=== PATIENT | male | born 1955 | race Caucasian/White ===

== ENCOUNTER 2017-01-25 10:33 | Emergency (ER) | payer MEDICAID ==
[~2017-01-25] VITALS: Ht 188 cm; Wt 130.0 kg
[~2017-01-25 10:33] MED LIST: 1-ME1LIQ PO; ASPI81TA82 PO; ATOR40TA49 PO; CLOP75 PO; METO50TA PO; ONDA8; PERC5TAB12 PO
[2017-01-25 10:34] VITALS: BP 189/89; PULSE 100; RESP 14; TEMP 98.1; O2SAT 97
[2017-01-25] MEDS ORDERED: ASPI81CH CHEW (11:06)
[2017-01-25] MEDS ORDERED: METOPROLOL TARTRATE 25 MG TAB PO ONE (11:15)
[2017-01-25] MEDS ORDERED: METO50TA PO (11:39)
[2017-01-25] MEDS ORDERED: PLAV75TA29 PO (11:39)
--- NOTE | 2017-01-25 11:40 | PD ---
HPI Chief Complaint: Hypertension Time Seen by Provider: 11:01 Travel History International Travel<30 days: No Contact w/Intl Traveler<30days: No Traveled to known affect area: No History of Present Illness HPI This 61-year-old man who presents to the emergency department referred from his primary care doctor for elevated blood pressure. He is a history of mantle cell lymphoma had been treated by Dr. Shoemaker prior to his snf. He is following with a primary care doctor to get referred for further treatment. Blood pressure was elevated there and so was referred to the emergency department. History Past Medical History Narrative Medical Mental cell lymphoma Hypertension Influenza Vaccination: No Social History Alcohol Use: No Tobacco Use: Yes (11/14 ppd) Allergies-Medications (Allergen,Severity, Reaction): Coded Allergies: No Known Allergies (Unverified , 01/25/17) Reported Meds & Prescriptions Reported Meds & Active Scripts Active Reported Aspirin 81 Mg Chew 81 Mg CHEW DAILY Review of Systems Except as stated in HPI: all other systems reviewed are Neg Physical Exam Narrative GENERAL: Well-appearing 7-year-old man, no acute distress. SKIN: Warm and dry. HEAD: Atraumatic. Normocephalic. NECK: Tender adenopathy in the right neck. CARDIOVASCULAR: Regular rate and rhythm. No murmur appreciated. RESPIRATORY: No accessory muscle use. Clear to auscultation. Breath sounds equal bilaterally. GASTROINTESTINAL: Abdomen soft, non-tender, nondistended. Hepatic and splenic margins not palpable. MUSCULOSKELETAL: No obvious deformities. No clubbing. No cyanosis. No edema. NEUROLOGICAL: Awake and alert. No obvious cranial nerve deficits. Motor grossly within normal limits. Normal speech. PSYCHIATRIC: Appropriate mood and affect; insight and judgment normal. Data Data Last Documented VS Vital Signs Date Time Temp Pulse Resp B/P Pulse Ox O2 Delivery O2 Flow Rate FiO2 01/25/17 10:34 98.1 100 14 189/89 97 Room Air Orders Metoprolol Tartrate (Lopressor) (01/25/17 11:15) MDM Medical Decision Making Medical Screen Exam Complete: Yes Emergency Medical Condition: Yes Differential Diagnosis Hypertension, lymphoma, heart disease, kidney disease, other Narrative Course Medical decision making 7 year-old man with known hypertension, non-medications for couple years, with elevated blood pressures primary care doctor's office. We'll need follow-up. We'll restart his blood pressure medications. Follow-up for his lymphoma. He' s been having some headache. He requests headache medicine. He is on opiates in the past but doesn't want to restart these. We'll give a migraine cocktail. Diagnosis Primary Impression: HTN (hypertension) Additional Instructions: Medications as prescribed. Follow-up with her primary care doctor the first available appointment. Return to the emergency department for new or worsening symptoms. Med/Other Pt SpecificInfo: Prescription(s) given Scripts Clopidogrel (Plavix)75 Mg Tab75 Mg PO DAILY #30 TAB Ref 2 Prov:Ramesh Gastelum MD 01/25/17 Metoprolol Tartrate 50 Mg Tab50 Mg PO BID #60 TAB Ref 2 Prov:Ramesh Gastelum MD 01/25/17 Disposition: 01 DISCHARGE HOME Condition: Stable Ramesh Gastelum MD Jan 25, 2017 11:39
[2017-01-31] MEDS ORDERED: VENTAER INH (13:43)
[2017-01-31] MEDS ORDERED: AMLO5TAB2 PO (13:43)
[2017-01-31] MEDS ORDERED: ATOR20TA15 PO (13:43)
[2017-01-31] MEDS ORDERED: PLAV75TA29 PO (13:43)
[2017-02-07] MEDS ORDERED: AMLO10TA2 PO (14:11)
[2017-02-20] MEDS ORDERED: ASPI1TAB69 PO (15:22)
[2017-02-20] MEDS ORDERED: METO100T PO (16:14)
[2017-02-20] MEDS ORDERED: METF500T PO (16:22)
[2017-03-03] MEDS ORDERED: METO50TA PO (16:24)
[2017-03-10] MEDS ORDERED: CANA100T PO (15:45)
[2017-03-10] MEDS ORDERED: AMLO10TA2 PO (15:48)
[2017-03-29] MEDS ORDERED: METO50TA PO (17:46)
[2017-04-24] MEDS ORDERED: ASPI81CH CHEW (14:46)
[2017-04-24] MEDS ORDERED: METO100T9 PO (15:09)
[2017-04-24] MEDS ORDERED: ALBU6.7H INH (15:09)
[2017-04-24] MEDS ORDERED: CANA300T PO (15:09)
[2017-04-24] MEDS ORDERED: CANA100T PO (15:11)
== END 2017-01-25 11:53 | disposition home or self-care (01) ==
LOC: NEPB 10:33
DX: I10 Essential (primary) hypertension (principal); F17.210 Nicotine dependence, cigarettes, uncomplicated
CPT/HCPCS: 99283

== ENCOUNTER 2017-07-03 07:57 | Day surgery (SDC) | payer MEDICAID, OTHER ==
[~2017-07-03] VITALS: Ht 190.5 cm; Wt 120.9 kg
[~2017-07-03 07:57] MED LIST changes: -1-ME1LIQ PO; +ALBU6.7H INH; +AMLO10TA2 PO; +ASPI81CH CHEW; -ASPI81TA82 PO; -ATOR40TA49 PO; +CANA100T PO; -CLOP75 PO; +METO100T9 PO; -METO50TA PO; -ONDA8; -PERC5TAB12 PO; +PLAV75TA29 PO
[2017-07-03 08:33] VITALS: BP 163/102; PULSE 84; RESP 20; TEMP 97.9; O2SAT 97
[2017-07-03] MEDS ORDERED: SODIUM CHLOR 0.9% 1000 ML IV SCH (09:00)
[2017-07-03 09:10] LABS: AUTOMATED NEUTROPHIL # 5.5 TH/MM3 (1.8-7.7); BASOPHIL # 0.1 TH/MM3 (0-0.2); BASOPHIL % 0.7 % (0.0-2.0); EOSINOPHIL # 0.3 TH/MM3 (0-0.4); EOSINOPHIL % 3.3 % (0.0-4.0); HEMATOCRIT 39.3 % (39.0-51.0); LYMPH % 21.7 % (9.0-44.0); LYMPHOCYTE # 1.7 TH/MM3 (1.0-4.8); MEAN CELL VOLUME 90.5 FL (80.0-100.0); MEAN CORPUSCULAR HGB CONC 33.1 % (32.0-36.0); MONO % 5.6 % (0.0-8.0); NEUT % 68.7 % (16.0-70.0); PLATELET COUNT 95 TH/MM3 (150-450); RED BLOOD COUNT 4.34 MIL/MM3 (4.50-5.90); RED CELL DISTRIBUTION WIDTH 14.3 % (11.6-17.2)
[2017-07-03 09:15] LABS: HEMO FLAGS AUTO DIFF
[2017-07-03 09:22] LABS: APTT (PATIENT) 31.9 SEC (24.3-30.1); INTERNATIONAL NORMALIZED RATIO 0.9 RATIO; PROTHROMBIN TIME - PATIENT 10.1 SEC (9.8-11.6)
[2017-07-03] MEDS ORDERED: LIDOCAINE HCL 1% 20 ML VIAL ONE (09:35)
[2017-07-03] MEDS ORDERED: MIDAZOLAM HCL 2 MG/2 ML VIAL ONE (09:47)
[2017-07-03] MEDS ORDERED: fentaNYL CITRATE 250 MCG/5 ML AMP ONE (09:47)
[2017-07-03 09:53] LABS: SCAN/DIFF AUTO DIFF CONFIRMED
--- NOTE | 2017-07-03 10:35 | PD.RAD ---
Post CT Procedure Prog Note Pre Procedure Diagnosis: (1) Mantle cell lymphoma Post Procedure Diagnosis: (1) Mantle cell lymphoma Procedure Date: Jul 03, 2017 Supervising Radiologist: Lucas Nunez Estimated blood loss: <5 ml Anesthesia: Conscious Sedation Plan of Activity Patient to Unit: ROPU Patient Condition: Good Additional Comments: lefy iliac bone See PACS Report for procedural detail/treatment Lucas Nunez MD Jul 03, 2017 10:35
[2017-07-03 10:45] VITALS: BP 141/80; PULSE 78; RESP 18; TEMP 97.6; O2SAT 94
[2017-07-03 11:00] VITALS: BP 129/80; PULSE 73; RESP 16; O2SAT 95
[2017-07-03] MEDS ORDERED: SODIUM CHLORIDE 0.9% FLUSH 10 ML FLUSH IV FLUSH PRN (11:00)
[2017-07-03 11:18] LABS: BONE MARROW PROCESSING COMPLETE; IRON STAIN DONE; JENNER GIEMSA STAIN DONE
[2017-07-03 11:30] VITALS: BP 119/77; PULSE 73; RESP 16; O2SAT 94
[2017-07-03 12:00] VITALS: BP 126/77; PULSE 68; RESP 14; O2SAT 94
--- NOTE | 2017-07-03 12:14 | RADRPT ---
EXAM DATE/TIME: 07/03/2017 10:07 [facility] COMPARISON: No previous studies available for comparison. INDICATIONS : Lymphoma. SEDATION TIME: 30 minutes BIOPSY SITE: Left iliac wing MEDICATION(S): 1.) 3 mg midazolam (Versed) IV 2.) 150 mcg fentanyl (Sublimaze) IV DEVICE(S): 1.) 11 gauge Bone marrow biopsy needle MEDICAL HISTORY : Lymphoma. Stroke. Hypertension. SURGICAL HISTORY : None. ENCOUNTER: Initial ACUITY: 1 day PAIN SCORE: 0/10 LOCATION: Bilateral pelvis A total of one core specimen(s) were obtained and sent to the laboratory for pathologic evaluation. PROCEDURE: 1. CT guided bone marrow biopsy. 2. Conscious sedation with continuous EKG and oximetry monitoring. 3. EKG and oximetry remained stable throughout the procedure. Prior to the procedure informed consent was obtained. Any appropriate prior imaging studies were rev iewed. Using automated exposure control and adjustment of the mA and/or kV according to patient size , radiation dose was kept as low as reasonably achievable to obtain optimal diagnostic quality images . DICOM format image data is available electronically for review and comparison. The site was prepped in a sterile fashion. Full sterile technique was used, including cap, mask, filiberto rile gloves and gown and a large sterile sheet. Hand hygiene and 2% chlorhexidine and/or betadine/al cohol prep was utilized per protocol for cutaneous antisepsis. The skin and subcutaneous tissues wer e infiltrated with local anesthetic solution. With CT guidance the previously identified target was localized. Biopsy was performed using the presc ribed needle as above. Following biopsy marrow aspiration was performed with repeat puncture. Adequa te hemostasis was obtained with compression at the puncture site. Follow-up CT scan reveals no hemorrhage. Conscious sedation was performed with the prescribed dosages and duration as above in the presence of an independent trained radiology nurse to assist in the monitoring of the patient. EKG and oximetry remained stable throughout the procedure. The patient tolerated the procedure well and there were no complications. The patient was sent to Radiology Outpatient Unit in stable condition. CONCLUSION: 1. Uncomplicated CT guided bone marrow aspirate. 2. Uncomplicated CT guided bone marrow biopsy. Lucas Nunez MD on July 03, 2017 at 12:13 Board Certified Radiologist. This report was verified electronically.
[2017-07-03 12:30] VITALS: BP 136/82; PULSE 67; RESP 16; O2SAT 97
[2017-07-26] MEDS ORDERED: METO100T9 PO (09:23)
[2017-07-26] MEDS ORDERED: ALBU6.7H INH (10:21)
[2017-07-26] MEDS ORDERED: AMLO10TA2 PO (15:20)
[2017-07-26] MEDS ORDERED: PLAV75TA29 PO (15:20)
== END 2017-07-03 12:45 | disposition home or self-care (01) ==
LOC: HRAD 07:57 → HRIP 07:58 → HRAD 12:45
PROVIDERS: ATTEND Internal Medicine
DX: C83.10 Mantle cell lymphoma, unspecified site (principal); I10 Essential (primary) hypertension; Z86.73 Personal history of transient ischemic attack (TIA), and cerebral infarction without residual deficits
CPT/HCPCS: 38221; 77012; 85025; 85097; 85610; 85730; 88305; 88311; 88313; 88341; 88342; 99152; 99153; C1830; G0364; J2250; J3010

== ENCOUNTER 2017-09-04 07:39 | Day surgery (SDC) | payer MEDICAID ==
[~2017-09-04 07:39] MED LIST changes: -ASPI81CH CHEW; -CANA100T PO
[2017-09-04 08:36] VITALS: BP 171/96; PULSE 87; RESP 16; TEMP 97.9; O2SAT 98
[2017-09-04] MEDS ORDERED: LIDOCAINE HCL 1% 20 ML VIAL ONE (09:18)
--- NOTE | 2017-09-04 09:31 | RADRPT ---
EXAM DATE/TIME: 09/04/2017 08:15 [facility] COMPARISON: No previous studies available for comparison. [facility]. INDICATIONS : Right neck enlarged lymph node. MEDICAL HISTORY : Hypercholesterolemia. Myocardial infarction. Deep venous thrombosis. CVA. AAA. CAD. Hypertenison. Man tel cell lymphoma cancer. COPD. Asthma. MRSA. Tobacco use. Anticoagulant therapy, Plavix. SURGICAL HISTORY : Abdominal aortic aneurysm repair. Coronary artery stent. Cardiac cath. Right neck lymph node biopsy. Bone marrow biopsy. Chemotherapy. Radiation therapy. ENCOUNTER: Initial ACUITY: 2 months PAIN SCORE: 3/10 LOCATION: Right neck ORGAN: Right lymph node SPECIMENS: Four core specimen(s) submitted for pathologic evaluation. DEVICE: 18 gauge Temno needle Post procedure scanning reveals no hematoma or other complication. The possibility does exist that the tissue obtained will be non-diagnostic. If the sample is non-gregoria gnostic a repeat biopsy or surgical biopsy may need to be performed. TECHNIQUE: 1. Ultrasound guidance for needle biopsy. 2. Needle biopsy. The risks, benefits and alternatives to the procedure were explained and verbal and written consent w as obtained. The site was prepped in sterile fashion. Full sterile technique was used, including ca p, mask, sterile gloves and gown and a large sterile sheet. Hand hygiene and 2% chlorhexidine and/or betadine/alcohol prep was utilized per protocol for cutaneous antisepsis. The skin and subcutaneous tissues were infiltrated with local anesthetic solution. Sterile gel and sterile probe cover were u tilized for ultrasound guidance. With the patient on the ultrasound table, images were obtained. This again demonstrates a very large 5.7 cm hyperemic lymph node on the right. A needle was advanced into the identified target and the number of specimens as above obtained and murdock bmitted for pathologic evaluation. In total, 4 biopsies were obtained. One sample was submitted in RP FL solution. The patient tolerated the procedure well and left the ultrasound suite in stable condition. CONCLUSION: Uncomplicated ultrasound guided needle biopsy. Lucas Nunez MD on September 04, 2017 at 9:28 Board Certified Radiologist. This report was verified electronically.
== END 2017-09-04 09:04 | disposition home or self-care (01) ==
LOC: HRAD 07:39 → HRIP 07:40 → HRAD 09:04
PROVIDERS: ATTEND Internal Medicine
DX: R59.0 Localized enlarged lymph nodes (principal); I25.10 Atherosclerotic heart disease of native coronary artery without angina pectoris; J44.9 Chronic obstructive pulmonary disease, unspecified; I25.2 Old myocardial infarction; Z95.5 Presence of coronary angioplasty implant and graft; Z86.73 Personal history of transient ischemic attack (TIA), and cerebral infarction without residual deficits
CPT/HCPCS: 38505; 76942; 88305; 88341; 88342

== ENCOUNTER 2018-06-28 02:51 | Inpatient (IN) ==
[2018-06-28] MEDS ORDERED: Acetaminophen 325 MG Tablet PO ONE (02:57)
[2018-06-28] MEDS ORDERED: Azithromycin Inj 500 MG in Sodium Chlor 0.9% Inj 250 ML IV.SIG STA (02:57)
[2018-06-28] MEDS ORDERED: Sod Chloride 0.9% Inj 1,000 ML IV.SIG SCH ×2 (03:00)
--- NOTE | 2018-06-28 03:28 | XR ---
EXAM DATE: 06/28/2018 3:15 AM EDT AGE/SEX: 62 years / Male INDICATIONS: Short of breath, chest pain. CLINICAL DATA: This is the patient's initial encounter. Patient reports that signs and symptoms have been present for 1 day and indicates a pain score of 5/10. MEDICAL/SURGICAL HISTORY: None. . [facility]. COMPARISON: No prior exams available for comparison. FINDINGS: A single AP view of the chest demonstrates the lungs to be symmetrically aerated without evidence of mass, infiltrate or effusion. The cardiomediastinal contours are unremarkable. Osseous structures a re intact. There is a CT compatible right internal jugular [id number] in place. The tip overlies t he cavoatrial junction. CONCLUSION: No acute cardiopulmonary process. Electronically signed by: Herbert Hogan MD 06/28/2018 3:27 AM EDT
[2018-06-28 03:54] LABS: Hematocrit 30.3 % (39.0-51.0); Hemoglobin 10.4 gm/dL (13.0-17.0); Mean Corpuscular HGB Conc 34.2 % (32.0-36.0); Mean Corpuscular Hemoglobin 29.2 pg (27.0-34.0); Mean Corpuscular Volume 85.3 fL (80.0-100.0); Mean Platelet Volume 9.6 fL (7.0-11.0); Platelet Count 92 th/mm3 (150-450); Red Blood Count 3.55 mil/mm3 (4.50-5.90); Red Cell Distribution Width 16.5 % (11.6-17.2); White Blood Count 4.2 th/mm3 (4.0-11.0)
[2018-06-28 03:55] LABS: Alanine Aminotransferase 40 U/L (12-78); Albumin 2.6 g/dL (3.4-5.0); Anion Gap 8 meq/L (5-15); Aspartate Aminotransferase 32 U/L (15-37); Blood Urea Nitrogen 12 mg/dL (7-18); Calcium 7.5 mg/dL (8.5-10.1); Carbon Dioxide 30.9 meq/L (21.0-32.0); Chloride 94 meq/L (98-107); Glomerular Filtration Rate 61 mL/min (>89); Glucose,Random 136 mg/dL (74-106); Potassium 3.1 meq/L (3.5-5.1); Sodium 133 meq/L (136-145)
[2018-06-28 03:58] LABS: Activated Partial Thrombo Time 26.3 sec (24.3-30.1); INR 1.1 Ratio; Prothrombin Time 10.8 sec (9.8-11.6)
[2018-06-28 03:59] LABS: Alkaline Phosphatase 189 U/L (45-117); Total Protein 6.6 g/dL (6.4-8.2)
--- NOTE | 2018-06-28 04:12 | ED ---
HPI General Chief Complaint: Chest Pain Stated Complaint: Chest pain/Evac Time Seen by Provider: 06/28/18 02:57 Mode of arrival: EMS Limitations: no limitations History of Present Illness HPI narrative: Patient is a 62-year-old male with coronary artery disease HTN, HLD, lymphoma type 2 diabetes presented to ED with acute onset of chest pain since last night. He has been having difficulty breathing and had a fever on arrival of 102 oral. MD complaint: chest pain Complete Quality Measures for STEMI Alert Patients STEMI Alert: No Onset (ago): unknown Duration: constant Onset: during rest Pain location: substernal Severity: severe Quality: tightness Associated symptoms: cough and other Related Data Home Medications Medication Instructions Recorded Confirmed amlodipine 10 mg PO DAILY 06/28/18 06/28/18 atorvastatin 20 mg PO DAILY 06/28/18 06/28/18 clopidogrel 75 mg PO DAILY 06/28/18 06/28/18 glipizide 10 mg PO DAILY 06/28/18 06/28/18 metoprolol tartrate 100 mg PO DAILY 06/28/18 06/28/18 omeprazole 20 mg PO DAILY 06/28/18 06/28/18 ranitidine HCl 150 mg PO DAILY 06/28/18 06/28/18 Allergies Allergy/AdvReac Type Severity Reaction Status Date / Time No Known Allergies Allergy Verified 06/28/18 03:00 Review of Systems ROS: all other systems reviewed are negative Constitutional Reports body ache(s), Reports chills, Reports fever(s) and Reports malaise [facility] Medical History Medical History COPD (chronic obstructive pulmonary disease) (Acute) Diabetes (Acute) GERD (gastroesophageal reflux disease) (Acute) HTN (hypertension) (Acute) Heart attack (Acute) Hx of abdominal aortic aneurysm (Acute) TIA (transient ischemic attack) (Acute) Surgical History Surgical History Hx of heart surgery (Acute) Family History Family History Father Heart disease Social History Social History Substance History: No History of Abuse Second Hand Smoke Exposure: Yes Smoking Status: Current some day smoker Tobacco Type: Cigarettes How Often Do You Have a Drink Containing Alcohol: Never Recent Travel in [place] within the Last 8 Weeks: No Recent Out of Country Travel within the Last 8 Weeks: No Immunization History Tetanus Immunization: Unsure Hx Influenza Vaccine This Season: No Exam Narrative Exam Narrative: GENERAL: Alert and oriented in no distress SKIN: Focused skin assessment warm/dry. HEAD: Atraumatic. Normocephalic. EYES: Pupils equal and round. No scleral icterus. No injection or drainage. ENT: No nasal bleeding or discharge. Mucous membranes pink and moist. NECK: Trachea midline. No JVD. CARDIOVASCULAR: Tachycardia regular rhythm. No murmur appreciated. RESPIRATORY: No accessory muscle use. Clear to auscultation. Breath sounds equal bilaterally. GASTROINTESTINAL: Abdomen soft, non-tender, nondistended. Hepatic and splenic margins not palpable. MUSCULOSKELETAL: No obvious deformities. No clubbing. No cyanosis. No edema. NEUROLOGICAL: Awake and alert. No obvious cranial nerve deficits. Motor grossly within normal limits. Normal speech. PSYCHIATRIC: Appropriate mood and affect; insight and judgment normal. Course Initial Documented Vital Signs Temperature 102.3 F H 06/28/18 03:00 Pulse Rate 136 H 06/28/18 03:00 Respiratory Rate 22 06/28/18 03:00 Blood Pressure 172/91 H 06/28/18 03:00 Pulse Oximetry 98 06/28/18 03:00 Last Documented Vital Signs Temperature 99.4 F 06/29/18 19:00 Pulse Rate 116 H 06/29/18 20:07 Respiratory Rate 22 06/29/18 20:07 Blood Pressure 127/52 L 06/29/18 19:00 Pulse Oximetry 99 06/29/18 20:06 Medical Decision Making [facility] Narrative Medical decision making narrative: Patient met sepsis criteria on arrival with rapid heart rate and fever. Equivocal findings on chest x-ray but due to symptoms and the fact that he schedule COPD with sepsis suspected clinical pneumonia for which she was started on broad-spectrum antibiotics. Chest pain resolved in the ED with interventions. Initial cardiac enzymes and EKG are not suggestive of acute ischemia. Was admitted for further evaluation treatment. Medical Screen Exam Complete: Yes Emergency Medical Condition: Yes Lab Data Lab results reviewed: Yes I reviewed the patient's lab results. Result diagrams: 06/30/18 06:02 06/30/18 06:02 Lab Results 06/28/18 06/28/18 06/28/18 Range/Units 03:05 03:05 03:05 WBC 4.2 (4.0-11.0) th/mm3 RBC 3.55 L (4.50-5.90) mil/mm3 Hgb 10.4 L (13.0-17.0) gm/dL Hct 30.3 L (39.0-51.0) % MCV 85.3 (80.0-100.0) fL MCH 29.2 (27.0-34.0) pg MCHC 34.2 (32.0-36.0) % RDW 16.5 (11.6-17.2) % Plt Count 92 L D (150-450) th/mm3 MPV 9.6 (7.0-11.0) fL Prelim Diff (Auto) Manual diff required Neut % (Auto) (16.0-70.0) % Lymph % (Auto) (9.0-44.0) % [place] % (Auto) (0.0-8.0) % Eos % (Auto) (0.0-4.0) % Baso % (Auto) (0.0-2.0) % Neut # (Auto) (1.8-7.7) th/mm3 Lymph # (Auto) (1.0-4.8) th/mm3 [place] # (Auto) (0.0-0.9) th/mm3 Eos # (Auto) (0.0-0.4) th/mm3 Baso # (Auto) (0.0-0.2) th/mm3 WBC Differential Manual diff final Seg Neuts % (Manual) 74 H (16-70) % Band Neuts % (Manual) 3 (0-6) % Lymphocytes % (Manual) 13 (9-44) % Monocytes % (Manual) 9 H (0-8) % Eosinophils % (Manual) 1 (0-4) % Basophils % (Manual) (0-2) % Metamyelocytes % (Man) (0-1) % Abs Neuts (Manual) 3.2 (1.8-7.7) th/mm3 Differential Comment . Platelet Estimate Low L (Normal) Platelet Morphology Normal (Normal) Ovalocytes 1+ H (None) PT 10.8 (9.8-11.6) sec INR 1.1 Ratio APTT 26.3 (24.3-30.1) sec Puncture Site Patient Temperature O2 Saturation (90-100) % ABG pH (7.380-7.420) ABG pCO2 (38-42) mmHg ABG pO2 (61-120) mmHg ABG HCO3 (22-26) mmol/L ABG O2 Content (12.0-20.0) Vol % ABG Base Excess (-2-2) mmol/L ABG Methemoglobin (0-2) % Rod Test Hemoglobin (12.0-16.0) G/DL Carboxyhemoglobin (0-4) % O2 Delivery Device Liter Flow L/M Inspired O2 % Critical Value Sodium 133 L (136-145) meq/L Potassium 3.1 L (3.5-5.1) meq/L Chloride 94 L (98-107) meq/L Carbon Dioxide 30.9 (21.0-32.0) meq/L Anion Gap 8 (5-15) meq/L BUN 12 (7-18) mg/dL Creatinine 1.21 (0.60-1.30) mg/dL Estimated GFR 61 L (>89) mL/min POC Glucose (68-110) mg/dl Random Glucose 136 H (74-106) mg/dL Lactic Acid (0.4-2.0) mmol/L Calcium 7.5 L (8.5-10.1) mg/dL Prot Corrected Calcium (8.5-10.1) mg/dL Phosphorus (2.5-4.9) mg/dL Magnesium (1.5-2.5) mg/dL Total Bilirubin 0.6 (0.2-1.0) mg/dL AST 32 (15-37) U/L ALT 40 (12-78) U/L Alkaline Phosphatase 189 H (45-117) U/L Troponin I Less than 0.02 L (0.02-0.05) ng/mL B-Natriuretic Peptide (0-100) pg/mL Total Protein 6.6 (6.4-8.2) g/dL Albumin 2.6 L (3.4-5.0) g/dL Urine Color (Yellw/Straw) Urine Clarity (Clear) Urine pH (5.0-8.5) Ur Specific [place] (1.002-1.035) Urine Protein (Neg-Trace) mg/dL Urine Glucose (UA) (Negative) mg/dL Urine Ketones (Negative) mg/dL Urine Occult Blood (Negative) Urine Nitrate (Negative) Urine Bilirubin (Negative) Urine Urobilinogen (Less than 2) mg/dL Ur Leukocyte Esterase (Negative) Urine RBC (0-3) /hpf Urine WBC (0-5) /hpf Micro UA Comment Urine Culture Comments Urine Opiates Screen (Neg) Ur Barbiturates Screen (Neg) Ur Amphetamines Screen (Neg) U Benzodiazepines Scrn (Neg) Urine Cocaine Screen (Neg) U Cannabinoids Screen (Neg) 06/28/18 06/28/18 06/28/18 Range/Units 03:05 03:05 03:05 WBC (4.0-11.0) th/mm3 RBC (4.50-5.90) mil/mm3 Hgb (13.0-17.0) gm/dL Hct (39.0-51.0) % MCV (80.0-100.0) fL MCH (27.0-34.0) pg MCHC (32.0-36.0) % RDW (11.6-17.2) % Plt Count (150-450) th/mm3 MPV (7.0-11.0) fL Prelim Diff (Auto) Neut % (Auto) (16.0-70.0) % Lymph % (Auto) (9.0-44.0) % [place] % (Auto) (0.0-8.0) % Eos % (Auto) (0.0-4.0) % Baso % (Auto) (0.0-2.0) % Neut # (Auto) (1.8-7.7) th/mm3 Lymph # (Auto) (1.0-4.8) th/mm3 [place] # (Auto) (0.0-0.9) th/mm3 Eos # (Auto) (0.0-0.4) th/mm3 Baso # (Auto) (0.0-0.2) th/mm3 WBC Differential Seg Neuts % (Manual) (16-70) % Band Neuts % (Manual) (0-6) % Lymphocytes % (Manual) (9-44) % Monocytes % (Manual) (0-8) % Eosinophils % (Manual) (0-4) % Basophils % (Manual) (0-2) % Metamyelocytes % (Man) (0-1) % Abs Neuts (Manual) (1.8-7.7) th/mm3 Differential Comment Platelet Estimate (Normal) Platelet Morphology (Normal) Ovalocytes (None) PT (9.8-11.6) sec INR Ratio APTT (24.3-30.1) sec Puncture Site Patient Temperature O2 Saturation (90-100) % ABG pH (7.380-7.420) ABG pCO2 (38-42) mmHg ABG pO2 (61-120) mmHg ABG HCO3 (22-26) mmol/L ABG O2 Content (12.0-20.0) Vol % ABG Base Excess (-2-2) mmol/L ABG Methemoglobin (0-2) % Rod Test Hemoglobin (12.0-16.0) G/DL Carboxyhemoglobin (0-4) % O2 Delivery Device Liter Flow L/M Inspired O2 % Critical Value Sodium (136-145) meq/L Potassium (3.5-5.1) meq/L Chloride (98-107) meq/L Carbon Dioxide (21.0-32.0) meq/L Anion Gap (5-15) meq/L BUN (7-18) mg/dL Creatinine (0.60-1.30) mg/dL Estimated GFR (>89) mL/min POC Glucose 134 H (68-110) mg/dl Random Glucose (74-106) mg/dL Lactic Acid 1.0 (0.4-2.0) mmol/L Calcium (8.5-10.1) mg/dL Prot Corrected Calcium (8.5-10.1) mg/dL Phosphorus (2.5-4.9) mg/dL Magnesium (1.5-2.5) mg/dL Total Bilirubin (0.2-1.0) mg/dL AST (15-37) U/L ALT (12-78) U/L Alkaline Phosphatase (45-117) U/L Troponin I (0.02-0.05) ng/mL B-Natriuretic Peptide 58 (0-100) pg/mL Total Protein (6.4-8.2) g/dL Albumin (3.4-5.0) g/dL Urine Color (Yellw/Straw) Urine Clarity (Clear) Urine pH (5.0-8.5) Ur Specific [place] (1.002-1.035) Urine Protein (Neg-Trace) mg/dL Urine Glucose (UA) (Negative) mg/dL Urine Ketones (Negative) mg/dL Urine Occult Blood (Negative) Urine Nitrate (Negative) Urine Bilirubin (Negative) Urine Urobilinogen (Less than 2) mg/dL Ur Leukocyte Esterase (Negative) Urine RBC (0-3) /hpf Urine WBC (0-5) /hpf Micro UA Comment Urine Culture Comments Urine Opiates Screen (Neg) Ur Barbiturates Screen (Neg) Ur Amphetamines Screen (Neg) U Benzodiazepines Scrn (Neg) Urine Cocaine Screen (Neg) U Cannabinoids Screen (Neg) 06/28/18 06/28/18 06/28/18 Range/Units 07:18 08:10 10:03 WBC (4.0-11.0) th/mm3 RBC (4.50-5.90) mil/mm3 Hgb (13.0-17.0) gm/dL Hct (39.0-51.0) % MCV (80.0-100.0) fL MCH (27.0-34.0) pg MCHC (32.0-36.0) % RDW (11.6-17.2) % Plt Count (150-450) th/mm3 MPV (7.0-11.0) fL Prelim Diff (Auto) Neut % (Auto) (16.0-70.0) % Lymph % (Auto) (9.0-44.0) % [place] % (Auto) (0.0-8.0) % Eos % (Auto) (0.0-4.0) % Baso % (Auto) (0.0-2.0) % Neut # (Auto) (1.8-7.7) th/mm3 Lymph # (Auto) (1.0-4.8) th/mm3 [place] # (Auto) (0.0-0.9) th/mm3 Eos # (Auto) (0.0-0.4) th/mm3 Baso # (Auto) (0.0-0.2) th/mm3 WBC Differential Seg Neuts % (Manual) (16-70) % Band Neuts % (Manual) (0-6) % Lymphocytes % (Manual) (9-44) % Monocytes % (Manual) (0-8) % Eosinophils % (Manual) (0-4) % Basophils % (Manual) (0-2) % Metamyelocytes % (Man) (0-1) % Abs Neuts (Manual) (1.8-7.7) th/mm3 Differential Comment Platelet Estimate (Normal) Platelet Morphology (Normal) Ovalocytes (None) PT (9.8-11.6) sec INR Ratio APTT (24.3-30.1) sec Puncture Site Patient Temperature O2 Saturation (90-100) % ABG pH (7.380-7.420) ABG pCO2 (38-42) mmHg ABG pO2 (61-120) mmHg ABG HCO3 (22-26) mmol/L ABG O2 Content (12.0-20.0) Vol % ABG Base Excess (-2-2) mmol/L ABG Methemoglobin (0-2) % Rod Test Hemoglobin (12.0-16.0) G/DL Carboxyhemoglobin (0-4) % O2 Delivery Device Liter Flow L/M Inspired O2 % Critical Value Sodium (136-145) meq/L Potassium (3.5-5.1) meq/L Chloride (98-107) meq/L Carbon Dioxide (21.0-32.0) meq/L Anion Gap (5-15) meq/L BUN (7-18) mg/dL Creatinine (0.60-1.30) mg/dL Estimated GFR (>89) mL/min POC Glucose 139 H (68-110) mg/dl Random Glucose (74-106) mg/dL Lactic Acid (0.4-2.0) mmol/L Calcium (8.5-10.1) mg/dL Prot Corrected Calcium (8.5-10.1) mg/dL Phosphorus (2.5-4.9) mg/dL Magnesium (1.5-2.5) mg/dL Total Bilirubin (0.2-1.0) mg/dL AST (15-37) U/L ALT (12-78) U/L Alkaline Phosphatase (45-117) U/L Troponin I 0.02 (0.02-0.05) ng/mL B-Natriuretic Peptide (0-100) pg/mL Total Protein (6.4-8.2) g/dL Albumin (3.4-5.0) g/dL Urine Color Yellow (Yellw/Straw) Urine Clarity Clear (Clear) Urine pH 6.0 (5.0-8.5) Ur Specific [place] 1.004 (1.002-1.035) Urine Protein Negative (Neg-Trace) mg/dL Urine Glucose (UA) Negative (Negative) mg/dL Urine Ketones Negative (Negative) mg/dL Urine Occult Blood Small H (Negative) Urine Nitrate Negative (Negative) Urine Bilirubin Negative (Negative) Urine Urobilinogen Less than 2 (Less than 2) mg/dL Ur Leukocyte Esterase Negative (Negative) Urine RBC Less than 1 (0-3) /hpf Urine WBC 1 (0-5) /hpf Micro UA Comment Culture not ind Urine Culture Comments Culture not ind Urine Opiates Screen (Neg) Ur Barbiturates Screen (Neg) Ur Amphetamines Screen (Neg) U Benzodiazepines Scrn (Neg) Urine Cocaine Screen (Neg) U Cannabinoids Screen (Neg) 06/28/18 06/28/18 06/28/18 Range/Units 12:36 14:47 16:44 WBC (4.0-11.0) th/mm3 RBC (4.50-5.90) mil/mm3 Hgb (13.0-17.0) gm/dL Hct (39.0-51.0) % MCV (80.0-100.0) fL MCH (27.0-34.0) pg MCHC (32.0-36.0) % RDW (11.6-17.2) % Plt Count (150-450) th/mm3 MPV (7.0-11.0) fL Prelim Diff (Auto) Neut % (Auto) (16.0-70.0) % Lymph % (Auto) (9.0-44.0) % [place] % (Auto) (0.0-8.0) % Eos % (Auto) (0.0-4.0) % Baso % (Auto) (0.0-2.0) % Neut # (Auto) (1.8-7.7) th/mm3 Lymph # (Auto) (1.0-4.8) th/mm3 [place] # (Auto) (0.0-0.9) th/mm3 Eos # (Auto) (0.0-0.4) th/mm3 Baso # (Auto) (0.0-0.2) th/mm3 WBC Differential Seg Neuts % (Manual) (16-70) % Band Neuts % (Manual) (0-6) % Lymphocytes % (Manual) (9-44) % Monocytes % (Manual) (0-8) % Eosinophils % (Manual) (0-4) % Basophils % (Manual) (0-2) % Metamyelocytes % (Man) (0-1) % Abs Neuts (Manual) (1.8-7.7) th/mm3 Differential Comment Platelet Estimate (Normal) Platelet Morphology (Normal) Ovalocytes (None) PT (9.8-11.6) sec INR Ratio APTT (24.3-30.1) sec Puncture Site Patient Temperature O2 Saturation (90-100) % ABG pH (7.380-7.420) ABG pCO2 (38-42) mmHg ABG pO2 (61-120) mmHg ABG HCO3 (22-26) mmol/L ABG O2 Content (12.0-20.0) Vol % ABG Base Excess (-2-2) mmol/L ABG Methemoglobin (0-2) % Rod Test Hemoglobin (12.0-16.0) G/DL Carboxyhemoglobin (0-4) % O2 Delivery Device Liter Flow L/M Inspired O2 % Critical Value Sodium (136-145) meq/L Potassium (3.5-5.1) meq/L Chloride (98-107) meq/L Carbon Dioxide (21.0-32.0) meq/L Anion Gap (5-15) meq/L BUN (7-18) mg/dL Creatinine (0.60-1.30) mg/dL Estimated GFR (>89) mL/min POC Glucose 160 H 165 H (68-110) mg/dl Random Glucose (74-106) mg/dL Lactic Acid (0.4-2.0) mmol/L Calcium (8.5-10.1) mg/dL Prot Corrected Calcium (8.5-10.1) mg/dL Phosphorus (2.5-4.9) mg/dL Magnesium (1.5-2.5) mg/dL Total Bilirubin (0.2-1.0) mg/dL AST (15-37) U/L ALT (12-78) U/L Alkaline Phosphatase (45-117) U/L Troponin I 0.03 (0.02-0.05) ng/mL B-Natriuretic Peptide (0-100) pg/mL Total Protein (6.4-8.2) g/dL Albumin (3.4-5.0) g/dL Urine Color (Yellw/Straw) Urine Clarity (Clear) Urine pH (5.0-8.5) Ur Specific [place] (1.002-1.035) Urine Protein (Neg-Trace) mg/dL Urine Glucose (UA) (Negative) mg/dL Urine Ketones (Negative) mg/dL Urine Occult Blood (Negative) Urine Nitrate (Negative) Urine Bilirubin (Negative) Urine Urobilinogen (Less than 2) mg/dL Ur Leukocyte Esterase (Negative) Urine RBC (0-3) /hpf Urine WBC (0-5) /hpf Micro UA Comment Urine Culture Comments Urine Opiates Screen (Neg) Ur Barbiturates Screen (Neg) Ur Amphetamines Screen (Neg) U Benzodiazepines Scrn (Neg) Urine Cocaine Screen (Neg) U Cannabinoids Screen (Neg) 06/28/18 06/29/18 06/29/18 Range/Units 21:11 05:13 05:13 WBC 3.0 L (4.0-11.0) th/mm3 RBC 2.96 L (4.50-5.90) mil/mm3 Hgb 8.8 L (13.0-17.0) gm/dL Hct 25.6 L (39.0-51.0) % MCV 86.4 (80.0-100.0) fL MCH 29.6 (27.0-34.0) pg MCHC 34.2 (32.0-36.0) % RDW 16.4 (11.6-17.2) % Plt Count 74 L (150-450) th/mm3 MPV 9.8 (7.0-11.0) fL Prelim Diff (Auto) Slide review pending Neut % (Auto) 64.9 (16.0-70.0) % Lymph % (Auto) 28.7 (9.0-44.0) % [place] % (Auto) 4.6 (0.0-8.0) % Eos % (Auto) 0.7 (0.0-4.0) % Baso % (Auto) 1.1 (0.0-2.0) % Neut # (Auto) 1.9 (1.8-7.7) th/mm3 Lymph # (Auto) 0.8 L (1.0-4.8) th/mm3 [place] # (Auto) 0.1 (0.0-0.9) th/mm3 Eos # (Auto) 0.0 (0.0-0.4) th/mm3 Baso # (Auto) 0.0 (0.0-0.2) th/mm3 WBC Differential Manual diff final Seg Neuts % (Manual) 69 (16-70) % Band Neuts % (Manual) 7 H (0-6) % Lymphocytes % (Manual) 13 (9-44) % Monocytes % (Manual) 9 H (0-8) % Eosinophils % (Manual) (0-4) % Basophils % (Manual) 1 (0-2) % Metamyelocytes % (Man) 1 (0-1) % Abs Neuts (Manual) 2.3 (1.8-7.7) th/mm3 Differential Comment . Platelet Estimate Low L (Normal) Platelet Morphology Normal (Normal) Ovalocytes 1+ H (None) PT (9.8-11.6) sec INR Ratio APTT (24.3-30.1) sec Puncture Site Patient Temperature O2 Saturation (90-100) % ABG pH (7.380-7.420) ABG pCO2 (38-42) mmHg ABG pO2 (61-120) mmHg ABG HCO3 (22-26) mmol/L ABG O2 Content (12.0-20.0) Vol % ABG Base Excess (-2-2) mmol/L ABG Methemoglobin (0-2) % Rod Test Hemoglobin (12.0-16.0) G/DL Carboxyhemoglobin (0-4) % O2 Delivery Device Liter Flow L/M Inspired O2 % Critical Value Sodium 138 (136-145) meq/L Potassium 3.2 L (3.5-5.1) meq/L Chloride 101 (98-107) meq/L Carbon Dioxide 27.9 (21.0-32.0) meq/L Anion Gap 9 (5-15) meq/L BUN 11 (7-18) mg/dL Creatinine 1.05 (0.60-1.30) mg/dL Estimated GFR 72 L (>89) mL/min POC Glucose 134 H (68-110) mg/dl Random Glucose 124 H (74-106) mg/dL Lactic Acid (0.4-2.0) mmol/L Calcium 7.0 L* (8.5-10.1) mg/dL Prot Corrected Calcium 7.6 L (8.5-10.1) mg/dL Phosphorus (2.5-4.9) mg/dL Magnesium (1.5-2.5) mg/dL Total Bilirubin (0.2-1.0) mg/dL AST (15-37) U/L ALT (12-78) U/L Alkaline Phosphatase (45-117) U/L Troponin I (0.02-0.05) ng/mL B-Natriuretic Peptide (0-100) pg/mL Total Protein 6.0 L D (6.4-8.2) g/dL Albumin (3.4-5.0) g/dL Urine Color (Yellw/Straw) Urine Clarity (Clear) Urine pH (5.0-8.5) Ur Specific [place] (1.002-1.035) Urine Protein (Neg-Trace) mg/dL Urine Glucose (UA) (Negative) mg/dL Urine Ketones (Negative) mg/dL Urine Occult Blood (Negative) Urine Nitrate (Negative) Urine Bilirubin (Negative) Urine Urobilinogen (Less than 2) mg/dL Ur Leukocyte Esterase (Negative) Urine RBC (0-3) /hpf Urine WBC (0-5) /hpf Micro UA Comment Urine Culture Comments Urine Opiates Screen (Neg) Ur Barbiturates Screen (Neg) Ur Amphetamines Screen (Neg) U Benzodiazepines Scrn (Neg) Urine Cocaine Screen (Neg) U Cannabinoids Screen (Neg) 06/29/18 06/29/18 06/29/18 Range/Units 05:13 08:08 11:16 WBC (4.0-11.0) th/mm3 RBC (4.50-5.90) mil/mm3 Hgb (13.0-17.0) gm/dL Hct (39.0-51.0) % MCV (80.0-100.0) fL MCH (27.0-34.0) pg MCHC (32.0-36.0) % RDW (11.6-17.2) % Plt Count (150-450) th/mm3 MPV (7.0-11.0) fL Prelim Diff (Auto) Neut % (Auto) (16.0-70.0) % Lymph % (Auto) (9.0-44.0) % [place] % (Auto) (0.0-8.0) % Eos % (Auto) (0.0-4.0) % Baso % (Auto) (0.0-2.0) % Neut # (Auto) (1.8-7.7) th/mm3 Lymph # (Auto) (1.0-4.8) th/mm3 [place] # (Auto) (0.0-0.9) th/mm3 Eos # (Auto) (0.0-0.4) th/mm3 Baso # (Auto) (0.0-0.2) th/mm3 WBC Differential Seg Neuts % (Manual) (16-70) % Band Neuts % (Manual) (0-6) % Lymphocytes % (Manual) (9-44) % Monocytes % (Manual) (0-8) % Eosinophils % (Manual) (0-4) % Basophils % (Manual) (0-2) % Metamyelocytes % (Man) (0-1) % Abs Neuts (Manual) (1.8-7.7) th/mm3 Differential Comment Platelet Estimate (Normal) Platelet Morphology (Normal) Ovalocytes (None) PT (9.8-11.6) sec INR Ratio APTT (24.3-30.1) sec Puncture Site Patient Temperature O2 Saturation (90-100) % ABG pH (7.380-7.420) ABG pCO2 (38-42) mmHg ABG pO2 (61-120) mmHg ABG HCO3 (22-26) mmol/L ABG O2 Content (12.0-20.0) Vol % ABG Base Excess (-2-2) mmol/L ABG Methemoglobin (0-2) % Rod Test Hemoglobin (12.0-16.0) G/DL Carboxyhemoglobin (0-4) % O2 Delivery Device Liter Flow L/M Inspired O2 % Critical Value Sodium (136-145) meq/L Potassium (3.5-5.1) meq/L Chloride (98-107) meq/L Carbon Dioxide (21.0-32.0) meq/L Anion Gap (5-15) meq/L BUN (7-18) mg/dL Creatinine (0.60-1.30) mg/dL Estimated GFR (>89) mL/min POC Glucose 137 H 168 H (68-110) mg/dl Random Glucose (74-106) mg/dL Lactic Acid (0.4-2.0) mmol/L Calcium (8.5-10.1) mg/dL Prot Corrected Calcium (8.5-10.1) mg/dL Phosphorus (2.5-4.9) mg/dL Magnesium (1.5-2.5) mg/dL Total Bilirubin (0.2-1.0) mg/dL AST (15-37) U/L ALT (12-78) U/L Alkaline Phosphatase (45-117) U/L Troponin I 0.03 (0.02-0.05) ng/mL B-Natriuretic Peptide (0-100) pg/mL Total Protein (6.4-8.2) g/dL Albumin (3.4-5.0) g/dL Urine Color (Yellw/Straw) Urine Clarity (Clear) Urine pH (5.0-8.5) Ur Specific [place] (1.002-1.035) Urine Protein (Neg-Trace) mg/dL Urine Glucose (UA) (Negative) mg/dL Urine Ketones (Negative) mg/dL Urine Occult Blood (Negative) Urine Nitrate (Negative) Urine Bilirubin (Negative) Urine Urobilinogen (Less than 2) mg/dL Ur Leukocyte Esterase (Negative) Urine RBC (0-3) /hpf Urine WBC (0-5) /hpf Micro UA Comment Urine Culture Comments Urine Opiates Screen (Neg) Ur Barbiturates Screen (Neg) Ur Amphetamines Screen (Neg) U Benzodiazepines Scrn (Neg) Urine Cocaine Screen (Neg) U Cannabinoids Screen (Neg) 06/29/18 06/29/18 06/30/18 Range/Units 15:45 17:00 01:15 WBC (4.0-11.0) th/mm3 RBC (4.50-5.90) mil/mm3 Hgb (13.0-17.0) gm/dL Hct (39.0-51.0) % MCV (80.0-100.0) fL MCH (27.0-34.0) pg MCHC (32.0-36.0) % RDW (11.6-17.2) % Plt Count (150-450) th/mm3 MPV (7.0-11.0) fL Prelim Diff (Auto) Neut % (Auto) (16.0-70.0) % Lymph % (Auto) (9.0-44.0) % [place] % (Auto) (0.0-8.0) % Eos % (Auto) (0.0-4.0) % Baso % (Auto) (0.0-2.0) % Neut # (Auto) (1.8-7.7) th/mm3 Lymph # (Auto) (1.0-4.8) th/mm3 [place] # (Auto) (0.0-0.9) th/mm3 Eos # (Auto) (0.0-0.4) th/mm3 Baso # (Auto) (0.0-0.2) th/mm3 WBC Differential Seg Neuts % (Manual) (16-70) % Band Neuts % (Manual) (0-6) % Lymphocytes % (Manual) (9-44) % Monocytes % (Manual) (0-8) % Eosinophils % (Manual) (0-4) % Basophils % (Manual) (0-2) % Metamyelocytes % (Man) (0-1) % Abs Neuts (Manual) (1.8-7.7) th/mm3 Differential Comment Platelet Estimate (Normal) Platelet Morphology (Normal) Ovalocytes (None) PT (9.8-11.6) sec INR Ratio APTT (24.3-30.1) sec Puncture Site Patient Temperature O2 Saturation (90-100) % ABG pH (7.380-7.420) ABG pCO2 (38-42) mmHg ABG pO2 (61-120) mmHg ABG HCO3 (22-26) mmol/L ABG O2 Content (12.0-20.0) Vol % ABG Base Excess (-2-2) mmol/L ABG Methemoglobin (0-2) % Rod Test Hemoglobin (12.0-16.0) G/DL Carboxyhemoglobin (0-4) % O2 Delivery Device Liter Flow L/M Inspired O2 % Critical Value Sodium (136-145) meq/L Potassium (3.5-5.1) meq/L Chloride (98-107) meq/L Carbon Dioxide (21.0-32.0) meq/L Anion Gap (5-15) meq/L BUN (7-18) mg/dL Creatinine (0.60-1.30) mg/dL Estimated GFR (>89) mL/min POC Glucose 223 H 198 H (68-110) mg/dl Random Glucose (74-106) mg/dL Lactic Acid (0.4-2.0) mmol/L Calcium (8.5-10.1) mg/dL Prot Corrected Calcium (8.5-10.1) mg/dL Phosphorus (2.5-4.9) mg/dL Magnesium (1.5-2.5) mg/dL Total Bilirubin (0.2-1.0) mg/dL AST (15-37) U/L ALT (12-78) U/L Alkaline Phosphatase (45-117) U/L Troponin I (0.02-0.05) ng/mL B-Natriuretic Peptide (0-100) pg/mL Total Protein (6.4-8.2) g/dL Albumin (3.4-5.0) g/dL Urine Color (Yellw/Straw) Urine Clarity (Clear) Urine pH (5.0-8.5) Ur Specific [place] (1.002-1.035) Urine Protein (Neg-Trace) mg/dL Urine Glucose (UA) (Negative) mg/dL Urine Ketones (Negative) mg/dL Urine Occult Blood (Negative) Urine Nitrate (Negative) Urine Bilirubin (Negative) Urine Urobilinogen (Less than 2) mg/dL Ur Leukocyte Esterase (Negative) Urine RBC (0-3) /hpf Urine WBC (0-5) /hpf Micro UA Comment Urine Culture Comments Urine Opiates Screen Neg (Neg) Ur Barbiturates Screen Neg (Neg) Ur Amphetamines Screen Neg (Neg) U Benzodiazepines Scrn Neg (Neg) Urine Cocaine Screen Neg (Neg) U Cannabinoids Screen Neg (Neg) 06/30/18 06/30/18 06/30/18 Range/Units 04:55 06:02 06:02 WBC 2.4 L (4.0-11.0) th/mm3 RBC 2.82 L (4.50-5.90) mil/mm3 Hgb 8.2 L (13.0-17.0) gm/dL Hct 24.6 L (39.0-51.0) % MCV 87.3 (80.0-100.0) fL MCH 29.1 (27.0-34.0) pg MCHC 33.4 (32.0-36.0) % RDW 16.4 (11.6-17.2) % Plt Count 71 L (150-450) th/mm3 MPV 9.9 (7.0-11.0) fL Prelim Diff (Auto) Slide review pending Neut % (Auto) 76.5 H (16.0-70.0) % Lymph % (Auto) 18.3 (9.0-44.0) % [place] % (Auto) 4.5 (0.0-8.0) % Eos % (Auto) 0.3 (0.0-4.0) % Baso % (Auto) 0.4 (0.0-2.0) % Neut # (Auto) 1.8 (1.8-7.7) th/mm3 Lymph # (Auto) 0.4 L (1.0-4.8) th/mm3 [place] # (Auto) 0.1 (0.0-0.9) th/mm3 Eos # (Auto) 0.0 (0.0-0.4) th/mm3 Baso # (Auto) 0.0 (0.0-0.2) th/mm3 WBC Differential Seg Neuts % (Manual) (16-70) % Band Neuts % (Manual) (0-6) % Lymphocytes % (Manual) (9-44) % Monocytes % (Manual) (0-8) % Eosinophils % (Manual) (0-4) % Basophils % (Manual) (0-2) % Metamyelocytes % (Man) (0-1) % Abs Neuts (Manual) (1.8-7.7) th/mm3 Differential Comment . Platelet Estimate (Normal) Platelet Morphology (Normal) Ovalocytes (None) PT (9.8-11.6) sec INR Ratio APTT (24.3-30.1) sec Puncture Site Right radial Patient Temperature 98.6 O2 Saturation 96 (90-100) % ABG pH 7.48 H (7.380-7.420) ABG pCO2 34 L (38-42) mmHg ABG pO2 101 (61-120) mmHg ABG HCO3 25 (22-26) mmol/L ABG O2 Content 13.0 (12.0-20.0) Vol % ABG Base Excess 1.7 (-2-2) mmol/L ABG Methemoglobin 1.2 (0-2) % Rod Test Present Hemoglobin 9.6 L (12.0-16.0) G/DL Carboxyhemoglobin 1.6 (0-4) % O2 Delivery Device Nasal cannula Liter Flow 2.00 L/M Inspired O2 28 % Critical Value No Sodium 137 (136-145) meq/L Potassium 3.3 L (3.5-5.1) meq/L Chloride 98 (98-107) meq/L Carbon Dioxide 26.0 (21.0-32.0) meq/L Anion Gap 13 (5-15) meq/L BUN 14 (7-18) mg/dL Creatinine 0.87 (0.60-1.30) mg/dL Estimated GFR 89 (>89) mL/min POC Glucose (68-110) mg/dl Random Glucose 228 H D (74-106) mg/dL Lactic Acid (0.4-2.0) mmol/L Calcium 6.9 L* (8.5-10.1) mg/dL Prot Corrected Calcium (8.5-10.1) mg/dL Phosphorus 3.1 (2.5-4.9) mg/dL Magnesium 1.5 (1.5-2.5) mg/dL Total Bilirubin (0.2-1.0) mg/dL AST (15-37) U/L ALT (12-78) U/L Alkaline Phosphatase (45-117) U/L Troponin I (0.02-0.05) ng/mL B-Natriuretic Peptide (0-100) pg/mL Total Protein (6.4-8.2) g/dL Albumin 2.2 L (3.4-5.0) g/dL Urine Color (Yellw/Straw) Urine Clarity (Clear) Urine pH (5.0-8.5) Ur Specific [place] (1.002-1.035) Urine Protein (Neg-Trace) mg/dL Urine Glucose (UA) (Negative) mg/dL Urine Ketones (Negative) mg/dL Urine Occult Blood (Negative) Urine Nitrate (Negative) Urine Bilirubin (Negative) Urine Urobilinogen (Less than 2) mg/dL Ur Leukocyte Esterase (Negative) Urine RBC (0-3) /hpf Urine WBC (0-5) /hpf Micro UA Comment Urine Culture Comments Urine Opiates Screen (Neg) Ur Barbiturates Screen (Neg) Ur Amphetamines Screen (Neg) U Benzodiazepines Scrn (Neg) Urine Cocaine Screen (Neg) U Cannabinoids Screen (Neg) Imaging Data Radiologist's impression: Chest X-Ray 06/28/18 02:57 CONCLUSION: No acute cardiopulmonary process. ECG Data Attestation: I personally reviewed and interpreted this ECG as follows: Interpretation: EKG obtained at 2:58 AM on June 28 revealed sinus tachycardia with frequent PVCs. LA interval 135 ms QTc 381 ms. Left axis deviation nonspecific ST-T wave abnormalities Discharge Plan Discharge Disposition Patient Disposition: 30 Still Patient Discharge Condition Condition: Stable Discharge Details Diagnosis: Atypical chest pain, Sepsis Physicians Team ED Provider: Von Carter Primary Care Provider: UNKNOWN, Attending Provider: Adán Remy Other Providers: [facility],Insurance ; Minor,Ramesh Discharge Interventions Interventions: ED Discharge Assessment Last Done: 06/28/18 12:30 Status ED Status: Left Department Discharge Information Discharge Date/Time: 06/28/18 12:31
[2018-06-28 04:42] LABS: Eosinophils 1 % (0-4); Lymphocytes 13 % (9-44); Monocytes 9 % (0-8)
[2018-06-28 04:43] LABS: Ovalocytes 1+; Platelet Morphology Normal (Normal)
[2018-06-28] MEDS ORDERED: Temazepam 15 MG Capsule PO PRN (05:25)
[2018-06-28] MEDS: Heparin - SQ 10,000 UNITS/ML Vial SQ SCH ×2 (05:46→18:17)
[2018-06-28] MEDS: Sod Chloride 0.9% Inj 1,000 ML IV.CONT SCH ×2 (05:46→16:20)
[2018-06-28 07:46] LABS: Bilirubin,Urine Negative (Negative); Clarity,Urine Clear (Clear); Color,Urine Yellow (Yellw/Straw); Glucose,Urine (UA) Negative (Negative); Leukocyte Esterase,Urine Negative (Negative); Nitrite,Urine Negative (Negative); Specific Gravity,Urine 1.004 (1.002-1.035)
--- NOTE | 2018-06-28 08:37 | P.HPIM ---
History of Present Illness Primary Care Physician: UNKNOWN Chief Complaint: chest pain History of Present Illness: patient is a 62 y/o male with history of CAD- s/p stent, hypertension, dyslipidemia, diabetes , mantle cell lymphoma, who presented to ER with chest pain. he says that he woke up in the middle of the night with chest pain. pain was midsternal with no radiation. he says that he vomited once and had some sweating. the pain went away after an hour and he was pain free at the time of my evaluation. he says that he's having sob and he had a fever of 102 at the time of presentation to ER. Inpatient Certification: I certify that the inpatient services were ordered in accordance with Medicare regulations governing the order. This includes certification that hospital inpatient services are reasonable and necessary and in the case of services not specified as inpatient-only under 42 CFR 419.22(n), that they are appropriately provided as inpatient services in accordance to with the 2-midnight benchmark under 43 CFR 412.3(e) Estimated Total Length of Stay (Days): 2 Plans for Post Hospital Care: Home Review of Systems All other systems reviewed negative except as stated in HPI PMFSH - History History Provided By: Patient - Medical History Medical History: Medical History (Last Updated 06/28/18 @ 02:59 by Seth Martinez) COPD (chronic obstructive pulmonary disease) Diabetes GERD (gastroesophageal reflux disease) HTN (hypertension) Heart attack Hx of abdominal aortic aneurysm TIA (transient ischemic attack) - Surgical History Surgical History: Surgical History (Last Updated 06/28/18 @ 02:59 by Seth Martinez) Hx of heart surgery - Family History Family History: Family History (Last Updated 06/28/18 @ 08:29 by Ermias Moncada MD) Father Heart disease - Tobacco History Tobacco Use In Past 30 Days: Yes Smoking Status: Current every day smoker Tobacco Type: Cigarettes - Alcohol History How Often Do You Have a Drink Containing Alcohol: Never - Substance Use History Substance History: No History of Abuse - Travel History Recent Travel in the [place] Within the Last 8 Weeks: No Recent Travel Out of the Country Within the Last 8 Weeks: No - Immunization History Tetanus Immunization: Unsure Hx Influenza Vaccine This Season: No Medications and Allergies Active Medications: Active Medications Acetaminophen (Tylenol) 650 mg PO Q4H PRN PRN Reason: Temp > 100.4 Amlodipine Besylate (Norvasc) 10 mg PO DAILY [facility] Atorvastatin Calcium (Lipitor) 20 mg PO DAILY [facility] Clopidogrel Bisulfate (Plavix) 75 mg PO DAILY [facility] Famotidine (Pepcid) 20 mg PO DAILY [facility] Glipizide (Glucotrol) 10 mg PO DAILY [facility] Heparin Sodium (Porcine) (Heparin Inj) 5,000 units SQ Q12H [facility] Last Admin: 06/28/18 05:46 Dose: 5,000 units Sodium Chloride (Ns Inj) 1,000 mls @ 0 mls/hr IV.SIG .Q0M ROSS Last Admin: 06/28/18 04:37 Dose: 999 mls/hr Sodium Chloride (Ns Inj) 1,000 mls @ 0 mls/hr IV.SIG .Q0M [facility] Last Admin: 06/28/18 04:37 Dose: 999 mls/hr Sodium Chloride (Ns Inj) 1,000 mls @ 100 mls/hr IV.CONT .Q10H [facility] Last Admin: 06/28/18 05:46 Dose: 100 mls/hr Metoprolol Tartrate (Lopressor) 100 mg PO DAILY [facility] Ondansetron HCl (Zofran Inj) 4 mg IV.PUSH Q6H PRN PRN Reason: NAUSEA OR VOMITING Pantoprazole Sodium (Protonix) 20 mg PO DAILY [facility] Temazepam (Restoril) 15 mg PO HS PRN PRN Reason: INSOMNIA Allergies Allergy/AdvReac Type Severity Reaction Status Date / Time No Known Allergies Allergy Verified 06/28/18 03:00 Home Medications Medication Instructions Recorded Confirmed Type amlodipine 10 mg PO DAILY 06/28/18 06/28/18 History atorvastatin 20 mg PO DAILY 06/28/18 06/28/18 History clopidogrel 75 mg PO DAILY 06/28/18 06/28/18 History glipizide 10 mg PO DAILY 06/28/18 06/28/18 History metoprolol tartrate 100 mg PO DAILY 06/28/18 06/28/18 History omeprazole 20 mg PO DAILY 06/28/18 06/28/18 History ranitidine HCl 150 mg PO DAILY 06/28/18 06/28/18 History Exam Vital signs: Vital Signs 06/28/18 03:00 06/28/18 03:02 06/28/18 03:38 Temperature 102.3 F H Pulse Rate 136 H 126 H Respiratory Rate 22 24 Blood Pressure 172/91 H Pulse Oximetry 98 100 06/28/18 06:38 06/28/18 07:00 Temperature Pulse Rate 108 H 106 H Respiratory Rate 20 17 Blood Pressure 128/65 113/64 Pulse Oximetry 98 98 Intake & Output 06/27/18 06/28/18 06/28/18 18:59 06:59 18:59 Weight 112.2 kg - Constitutional no acute distress - Routine HEENT Exam Eye: Present: PERRL - Routine Neck Exam Present: full ROM - Routine Respiratory Exam Present: CTA bilaterally - Routine Cardiovascular Exam Present: RRR - Routine Abdominal Exam Present: soft - Routine Extremities Exam Comments: no pedal edema. - Routine Neurological Exam Present: alert, oriented X3 Results - Labs CBC & Chem 7: 06/28/18 03:05 06/28/18 03:05 Labs: Short CBC 06/28/18 Range/Units 03:05 WBC 4.2 (4.0-11.0) th/mm3 Hgb 10.4 L (13.0-17.0) gm/dL Hct 30.3 L (39.0-51.0) % Plt Count 92 L D (150-450) th/mm3 BMP 06/28/18 03:05 Sodium 133 L Potassium 3.1 L Chloride 94 L Carbon Dioxide 30.9 BUN 12 Creatinine 1.21 Calcium 7.5 L Cardiac Enzymes 06/28/18 Range/Units 03:05 Troponin I Less than 0.02 L (0.02-0.05) ng/mL Liver Function 06/28/18 Range/Units 03:05 Total Bilirubin 0.6 (0.2-1.0) mg/dL AST 32 (15-37) U/L ALT 40 (12-78) U/L Alkaline Phosphatase 189 H (45-117) U/L Albumin 2.6 L (3.4-5.0) g/dL Urine 06/28/18 Range/Units 07:18 Urine Color Yellow (Yellw/Straw) Urine Clarity Clear (Clear) Urine pH 6.0 (5.0-8.5) Ur Specific [facility] 1.004 (1.002-1.035) Urine Protein Negative (Neg-Trace) mg/dL Urine Glucose (UA) Negative (Negative) mg/dL - Imaging Impressions Chest X-Ray 06/28/18 02:57 CONCLUSION: No acute cardiopulmonary process. Caprini VTE Risk Assessment Caprini VTE Risk Assessment: Moderate/High Risk (score >= 2) Caprini Risk Assessment Model: Point Value = 1 Point Value = 2 Point Value = 3 Point Value = 5 Age 41-60 Minor surgery BMI > 25 kg/m2 Swollen legs Varicose veins or History of unexplained or recurrent spontaneous Oral contraceptives or hormone replacement Sepsis (< 1 month) Serious lung disease, including pneumonia (< 1 month) Abnormal pulmonary function Acute myocardial infarction Congestive heart failure (< 1 month) History of inflammatory bowel disease Medical patient at bed rest Age 61-74 Arthroscopic surgery Major open surgery (> 45 min) Laparoscopic surgery (> 45 min) Malignancy Confined to bed (> 72 hours) Immobilizing plaster cast Central venous access Age >= 75 History of VTE Family history of VTE Factor V Leiden Prothrombin [id number] Lupus anticoagulant Anticardiolipin antibodies Elevated serum homocysteine Heparin-induced thrombocytopenia Other congenital or acquired thrombophilia Stroke (< 1 month) Elective arthroplasty Hip, pelvis, or leg fracture Acute spinal cord injury (< 1 month) Prophylaxis Regimen: Total Risk Factor Score Risk Level Prophylaxis Regimen 0-1 Low Early ambulation 2 Moderate Order ONE of the following: *Sequential Compression Device (SCD) *Heparin 5000 units SQ BID 3-4 Higher Order ONE of the following medications: *Heparin 5000 units SQ TID *Enoxaparin/Lovenox 40 mg SQ daily (WT < 150 kg, CrCl > 30 mL/min) *Enoxaparin/Lovenox 30 mg SQ daily (WT < 150 kg, CrCl > 10-29 mL/min) *Enoxaparin/Lovenox 30 mg SQ BID (WT < 150 kg, CrCl > 30 mL/min) AND/OR *Sequential Compression Device (SCD) 5 or more Highest Order ONE of the following medications: *Heparin 5000 units SQ TID (Preferred with Epidurals) *Enoxaparin/Lovenox 40 mg SQ daily (WT < 150 kg, CrCl > 30 mL/min) *Enoxaparin/Lovenox 30 mg SQ daily (WT < 150 kg, CrCl > 10-29 mL/min) *Enoxaparin/Lovenox 30 mg SQ BID (WT < 150 kg, CrCl > 30 mL/min) AND *Sequential Compression Device (SCD) Assessment and Plan - Plan A/P - sepsis ( tachycardia/ fever)- suspect pneumonia as the source/ with history of COPD continue with IV antibiotics- will follow the cultures and adjust the antibiotic regimen accordingly- neb treatment. keep on oxygen to keep O2 sat > 90%. counselled on smoking cessation. -chest pain- first troponin negative- currently chest pain free- continue to trend the cardiac enzymes. continue plavix , metoprolol and statin. -hypertension; resume home meds and monitor. -hypokalemia; replaced- will monitor. -mantle cell lymphoma- f/u as outpatient with -diabetes mellitus; hold Glipizide- start on accu-check with SSI. -thrombocytopenia- chronic- will monitor. -DVT prophylaxis with subq Heparin. Discussed Condition With: the patient, RN and case management.
[2018-06-28] MEDS ORDERED: Dextrose 50% in Water 50 ML Vial IV.PUSH PRN (08:44)
[2018-06-28] MEDS ORDERED: glipiZIDE 10 MG Tablet PO SCH (09:00)
[2018-06-28] MEDS: amLODIPine 10 MG Tablet PO SCH (10:28)
[2018-06-28] MEDS: Metoprolol Tartrate 100 MG Tablet PO SCH (10:28)
[2018-06-28] MEDS: Pantoprazole Sodium 20 MG DR Tablet PO SCH (10:29)
[2018-06-28] MEDS: Famotidine 20 MG Tablet PO SCH (10:29)
[2018-06-28] MEDS: Acetaminophen 325 MG Tablet PO PRN ×3 (12:38→22:50)
[2018-06-28] MEDS: Insulin NovoLOG Aspart Correctional Sugar Inj SQ SCH ×3 (12:54→22:10)
--- NOTE | 2018-06-28 13:02 | ECG ---
Date Performed: 06/28/2018 Time Performed: 02:58:00 PTAGE: 62 years EKG: SINUS TACHYCARDIA WITH FREQUENT SUPRAVENTRICULAR PREMATURE COMPLEXES LEFT ANTERIOR FASCICUL AR BLOCK ABNORMAL ECG Compared to PREVIOUS TRACING , axis has shifted leftward. PREVIOUS TRACIN09/24/2015 08.10 DOCTOR: Zachary Alex Interpretating Date/Time 06/28/2018 13:00:21
[2018-06-28] MEDS ORDERED: Metoprolol Inj 5 MG/5 ML Vial IV.PUSH ONE (22:14)
[2018-06-29] MEDS ORDERED: Metoprolol Inj 5 MG/5 ML Vial IV.PUSH ONE (00:35)
[2018-06-29] MEDS: Azithromycin Inj 250 MG in Sodium Chlor 0.9% Inj 250 ML IV.SIG SCH (01:20)
[2018-06-29] MEDS: Sod Chloride 0.9% Inj 1,000 ML IV.CONT SCH ×3 (03:10→23:54)
[2018-06-29] MEDS: Heparin - SQ 10,000 UNITS/ML Vial SQ SCH ×2 (04:42→17:02)
[2018-06-29 06:06] LABS: Baso % (Auto) 1.1 % (0.0-2.0); Eos % (Auto) 0.7 % (0.0-4.0); Hematocrit 25.6 % (39.0-51.0); Hemoglobin 8.8 gm/dL (13.0-17.0); Lymph # (Auto) 0.8 th/mm3 (1.0-4.8); Lymph % (Auto) 28.7 % (9.0-44.0); Mean Corpuscular HGB Conc 34.2 % (32.0-36.0); Mean Corpuscular Hemoglobin 29.6 pg (27.0-34.0); Mean Corpuscular Volume 86.4 fL (80.0-100.0); Mean Platelet Volume 9.8 fL (7.0-11.0); Mono # (Auto) 0.1 th/mm3 (0.0-0.9); Mono % (Auto) 4.6 % (0.0-8.0); Neut # (Auto) 1.9 th/mm3 (1.8-7.7); Neut % (Auto) 64.9 % (16.0-70.0); Platelet Count 74 th/mm3 (150-450); Red Blood Count 2.96 mil/mm3 (4.50-5.90); Red Cell Distribution Width 16.4 % (11.6-17.2)
[2018-06-29 06:28] LABS: Carbon Dioxide 27.9 meq/L (21.0-32.0); Potassium 3.2 meq/L (3.5-5.1)
[2018-06-29] MEDS: dilTIAZem Inj 125 MG in Sodium Chlor 0.9% Inj 100 ML IV.CONT PRN ×2 (07:14→20:55)
[2018-06-29 07:49] LABS: Lymphocytes 13 % (9-44); Metamyelocytes 1 % (0-1); Monocytes 9 % (0-8)
[2018-06-29 07:50] LABS: Ovalocytes 1+; Platelet Morphology Normal (Normal)
[2018-06-29] MEDS: Insulin NovoLOG Aspart Correctional Sugar Inj SQ SCH ×3 (08:09→17:01)
[2018-06-29] MEDS: Famotidine 20 MG Tablet PO SCH (08:12)
[2018-06-29] MEDS: Pantoprazole Sodium 20 MG DR Tablet PO SCH (08:12)
[2018-06-29] MEDS: Metoprolol Tartrate 100 MG Tablet PO SCH (08:13)
[2018-06-29] MEDS: amLODIPine 10 MG Tablet PO SCH (08:13)
--- NOTE | 2018-06-29 12:47 | ECG ---
Date Performed: 06/28/2018 Time Performed: 08:11:39 PTAGE: 62 years EKG: SINUS TACHYCARDIA WITH PACs LOW PRECORDIAL LEAD VOLTAGE ABNORMAL RHYTHM ECG Since PREVIOUS TRACING , no significant change noted PREVIOUS TRACIN06/28/2018 02.58 DOCTOR: Lon Carney Interpretating Date/Time 06/29/2018 12:46:52
--- NOTE | 2018-06-29 12:47 | ECG ---
Date Performed: 06/28/2018 Time Performed: 13:22:40 PTAGE: 62 years EKG: SINUS TACHYCARDIA LOW PRECDORDIAL LEAD VOLTAGE Abnormal ECG Since PREVIOUS TRACING , no significant change noted PREVIOUS TRACIN06/28/2018 08.11 DOCTOR: Lon Carney Interpretating Date/Time 06/29/2018 12:47:12
--- NOTE | 2018-06-29 14:04 | P.PNIM ---
Subjective Interval history: Patient says he is feeling better than yesterday. Denies any chest pain or shortness of breath. Physical Exam Vital signs: Vital Signs 06/28/18 14:00 06/28/18 14:30 06/28/18 15:00 Temperature 98.6 F 98.6 F Pulse Rate 105 H 107 H Respiratory Rate 20 Blood Pressure 103/49 L Pulse Oximetry 97 06/28/18 16:00 06/28/18 17:00 06/28/18 18:00 Temperature Pulse Rate 104 H 112 H 99 H Respiratory Rate Blood Pressure Pulse Oximetry 06/28/18 18:19 06/28/18 19:00 06/28/18 20:00 Temperature 98.9 F 98.8 F Pulse Rate 106 H 110 H Respiratory Rate 20 Blood Pressure 145/49 H Pulse Oximetry 96 96 06/28/18 21:00 06/28/18 22:00 06/28/18 23:00 Temperature 101.0 F H Pulse Rate 114 H 128 H 122 H Respiratory Rate 20 Blood Pressure 134/53 L Pulse Oximetry 98 06/29/18 00:00 06/29/18 01:00 06/29/18 02:00 Temperature Pulse Rate 118 H 106 H 98 H Respiratory Rate Blood Pressure Pulse Oximetry 06/29/18 03:00 06/29/18 04:00 06/29/18 05:00 Temperature 98.7 F Pulse Rate 99 H 113 H 120 H Respiratory Rate 20 Blood Pressure 98/63 L Pulse Oximetry 96 06/29/18 06:00 06/29/18 07:00 06/29/18 08:00 Temperature 98.1 F Pulse Rate 120 H 91 H 91 H Respiratory Rate 16 Blood Pressure 143/70 H Pulse Oximetry 96 06/29/18 09:00 06/29/18 10:00 06/29/18 11:00 Temperature 98.6 F Pulse Rate 99 H 98 H 98 H Respiratory Rate 16 Blood Pressure 112/62 Pulse Oximetry 96 06/29/18 12:00 Temperature Pulse Rate 99 H Respiratory Rate Blood Pressure Pulse Oximetry Intake & Output 06/28/18 06/29/18 06/29/18 18:59 06:59 18:59 Intake Total 3750 / 3750 2070 / 2070 1000 / 1000 Output Total 800 / 800 500 / 500 Balance 2950 / 2950 1570 / 1570 1000 / 1000 Intake: IV 3350 / 3350 1350 / 1350 1000 / 1000 NS Inj 1,000 ML @ 100 mls/hr IV 1000 / 1000 1000 / 1000 1000 / 1000 .CONT .Q10H ROSS Rx#:[id number] Azithromycin Inj 250 MG In NS 250 / 250 Inj 250 ML @ 250 mls/hr IV.SIG Q24H ROSS Rx#:[id number] NS Inj 1,000 ML @ Wide Open IV. 1999 / 1999 SIG .Q0M ROSS Rx#:[id number] Rocephin Inj 1,000 MG In NS Inj 100 / 100 100 ML @ 200 mls/hr IV.SIG Q24H ROSS Rx#:[id number] Oral 400 / 400 720 / 720 Output: Urine 800 / 800 500 / 500 Other: # Voids 2 Date of Last Bowel Movement 06/28/18 Narrative: GENERAL: Patient sitting up in bed. Appears comfortable. Alert and oriented 3. SKIN: Warm and dry. HEAD: Normocephalic. EYES: No scleral icterus. No injection or drainage. NECK: Supple, trachea midline. No JVD. CARDIOVASCULAR: Regular rate and rhythm without murmurs, gallops, or rubs. RESPIRATORY: Breath sounds equal bilaterally. No accessory muscle use. GASTROINTESTINAL: Abdomen soft, non-tender, nondistended. MUSCULOSKELETAL: No cyanosis, or edema. BACK: Nontender without obvious deformity. No CVA tenderness. Results - Labs CBC & Chem 7: 06/29/18 05:13 06/29/18 05:13 Laboratory Results - last 24 hr 06/28/18 06/28/18 06/28/18 14:47 16:44 21:11 WBC RBC Hgb Hct MCV MCH MCHC RDW Plt Count MPV Prelim Diff (Auto) Neut % (Auto) Lymph % (Auto) [place] % (Auto) Eos % (Auto) Baso % (Auto) Neut # (Auto) Lymph # (Auto) [place] # (Auto) Eos # (Auto) Baso # (Auto) WBC Differential Seg Neuts % (Manual) Band Neuts % (Manual) Lymphocytes % (Manual) Monocytes % (Manual) Basophils % (Manual) Metamyelocytes % (Man) Abs Neuts (Manual) Differential Comment Platelet Estimate Platelet Morphology Ovalocytes Sodium Potassium Chloride Carbon Dioxide Anion Gap BUN Creatinine Estimated GFR POC Glucose 165 H 134 H Random Glucose Calcium Prot Corrected Calcium Troponin I 0.03 Total Protein 06/29/18 06/29/18 06/29/18 05:13 05:13 08:08 WBC 3.0 L RBC 2.96 L Hgb 8.8 L Hct 25.6 L MCV 86.4 MCH 29.6 MCHC 34.2 RDW 16.4 Plt Count 74 L MPV 9.8 Prelim Diff (Auto) Slide review pending Neut % (Auto) 64.9 Lymph % (Auto) 28.7 [place] % (Auto) 4.6 Eos % (Auto) 0.7 Baso % (Auto) 1.1 Neut # (Auto) 1.9 Lymph # (Auto) 0.8 L [place] # (Auto) 0.1 Eos # (Auto) 0.0 Baso # (Auto) 0.0 WBC Differential Manual diff final Seg Neuts % (Manual) 69 Band Neuts % (Manual) 7 H Lymphocytes % (Manual) 13 Monocytes % (Manual) 9 H Basophils % (Manual) 1 Metamyelocytes % (Man) 1 Abs Neuts (Manual) 2.3 Differential Comment . Platelet Estimate Low L Platelet Morphology Normal Ovalocytes 1+ H Sodium 138 Potassium 3.2 L Chloride 101 Carbon Dioxide 27.9 Anion Gap 9 BUN 11 Creatinine 1.05 Estimated GFR 72 L POC Glucose 137 H Random Glucose 124 H Calcium 7.0 L* Prot Corrected Calcium 7.6 L Troponin I Total Protein 6.0 L D 06/29/18 11:16 WBC RBC Hgb Hct MCV MCH MCHC RDW Plt Count MPV Prelim Diff (Auto) Neut % (Auto) Lymph % (Auto) [place] % (Auto) Eos % (Auto) Baso % (Auto) Neut # (Auto) Lymph # (Auto) [place] # (Auto) Eos # (Auto) Baso # (Auto) WBC Differential Seg Neuts % (Manual) Band Neuts % (Manual) Lymphocytes % (Manual) Monocytes % (Manual) Basophils % (Manual) Metamyelocytes % (Man) Abs Neuts (Manual) Differential Comment Platelet Estimate Platelet Morphology Ovalocytes Sodium Potassium Chloride Carbon Dioxide Anion Gap BUN Creatinine Estimated GFR POC Glucose 168 H Random Glucose Calcium Prot Corrected Calcium Troponin I Total Protein Microbiology 06/28/18 03:05 Blood - Peripheral Aerobic Blood Culture - Preliminary No growth in 1 day 06/28/18 03:05 Blood - Peripheral Anaerobic Blood Culture - Preliminary No growth in 1 day 06/28/18 03:00 Blood - Peripheral Aerobic Blood Culture - Preliminary No growth in 1 day 06/28/18 03:00 Blood - Peripheral Anaerobic Blood Culture - Preliminary No growth in 1 day Assessment and Plan - Plan //sepsis ( tachycardia/ fever)- suspect pneumonia as the source/ with history of COPD continue with IV antibiotics- will follow the cultures and adjust the antibiotic regimen accordingly- neb treatment. keep on oxygen to keep O2 sat > 90%. counselled on smoking cessation. = 06/29. Leukopenia 3.0. Patient refuses oncology evaluation will continue antibiotic for treatment of pneumonia. //SVT on admission. //chest pain- first troponin negative- currently chest pain free- continue to trend the cardiac enzymes. continue plavix , metoprolol and statin. = Troponin 0 0.02. Patient now chest pain-free. On diltiazem drip. Consult cardiology. //hypertension; resume home meds and monitor. -hypokalemia; replaced- will monitor. -mantle cell lymphoma- f/u as outpatient with -diabetes mellitus; hold Glipizide- start on accu-check with SSI. -thrombocytopenia- chronic- will monitor. -DVT prophylaxis with subq Heparin. Discharge Planning: Hopefully discharge tomorrow if feeling well and cleared by cardiology.
[2018-06-29] MEDS: Acetaminophen 325 MG Tablet PO PRN (14:54)
--- NOTE | 2018-06-29 16:00 | P.CONCA ---
<Felicia Monroe - Last Filed: 06/29/18 15:38> History of Present Illness Service: cardiology Consult date: 06/29/18 Reason for Consult: chest pain, tachycardia Primary Care Provider: UNKNOWN Chief Complaint: chest pain History of Present Illness: 62 yo obese WM with CAD, cardiac st[place] [address] Salomon and since lost to follow up, HTN, HLD, DMII,COPD, tobacco and marijuana smoker with lymphoma admitted for chest pain and diaphoresis. Patient states in under the care of oncologist for late stage lymphoma and has undergone several rounds of chemo and most recently radiation to neck last month. He reports frequent fevers and night sweats x several weeks; 2 nights ago he awoke with diaphoresis , one episode of emesis and left sided chest pressure that was not reminiscent of prior OR. He was transported to the ED where EKG showed sinus tachycardia and frequent PACs with HR 100-110bpm no concerning ST segment or T wave changes. Troponin level x 1 0.03. He is now on Diltiazem gtt and metoprolol 100mg daily with continued tachycardia (HR 97-110bpm). He states chest pressure resolved last night; chronic SOB ,now with continued diaphoresis and fever. No palpitations. Review of Systems All other systems reviewed negative except as stated in HPI PMFSH - History History Provided By: Patient - Medical History Medical History: Medical History (Last Updated 06/28/18 @ 02:59 by Seth Martinez) COPD (chronic obstructive pulmonary disease) Diabetes GERD (gastroesophageal reflux disease) HTN (hypertension) Heart attack Hx of abdominal aortic aneurysm TIA (transient ischemic attack) - Surgical History Surgical History: Surgical History (Last Updated 06/28/18 @ 02:59 by Seth Martinez) Hx of heart surgery - Family History Family History: Family History (Last Updated 06/28/18 @ 08:29 by Ermias Moncada MD) Father Heart disease - Tobacco History Second Hand Smoke Exposure: Yes Tobacco Use In Past 30 Days: Yes Smoking Status: Current some day smoker Tobacco Type: Cigarettes - Alcohol History How Often Do You Have a Drink Containing Alcohol: Never - Substance Use History Substance History: No History of Abuse - Travel History Recent Travel in the [place] Within the Last 8 Weeks: No Recent Travel Out of the Country Within the Last 8 Weeks: No - Immunization History Tetanus Immunization: Unsure Hx Influenza Vaccine This Season: No Medications and Allergies Allergies Allergy/AdvReac Type Severity Reaction Status Date / Time No Known Allergies Allergy Verified 06/28/18 03:00 Home Medications Medication Instructions Recorded Confirmed Type amlodipine 10 mg PO DAILY 06/28/18 06/28/18 History atorvastatin 20 mg PO DAILY 06/28/18 06/28/18 History clopidogrel 75 mg PO DAILY 06/28/18 06/28/18 History glipizide 10 mg PO DAILY 06/28/18 06/28/18 History metoprolol tartrate 100 mg PO DAILY 06/28/18 06/28/18 History omeprazole 20 mg PO DAILY 06/28/18 06/28/18 History ranitidine HCl 150 mg PO DAILY 06/28/18 06/28/18 History Active Medications: Active Medications Acetaminophen (Tylenol) 650 mg PO Q4H PRN PRN Reason: Temp > 100.4 Last Admin: 06/29/18 14:54 Dose: 650 mg Albuterol (Albuterol Neb (Prn)) 1.25 mg NEB Q2HR NEB PRN PRN Reason: sob/wheezing Amlodipine Besylate (Norvasc) 10 mg PO DAILY [facility] Last Admin: 06/29/18 08:13 Dose: 10 mg Atorvastatin Calcium (Lipitor) 20 mg PO DAILY [facility] Last Admin: 06/29/18 08:13 Dose: Not Given Clopidogrel Bisulfate (Plavix) 75 mg PO DAILY [facility] Last Admin: 06/29/18 08:11 Dose: 75 mg Dextrose (D50w Vial) 50 ml IV.PUSH UNSCH PRN PRN Reason: PER HYPOGLYCEMIA PROTOCOL Famotidine (Pepcid) 20 mg PO DAILY [facility] Last Admin: 06/29/18 08:12 Dose: Not Given Glipizide (Glucotrol) 10 mg PO DAILY [facility] Glucagon (Glucagon Inj) 1 mg OTHER PRN PRN PRN Reason: for Hypoglycemia Protocol Heparin Sodium (Porcine) (Heparin Inj) 5,000 units SQ Q12H [facility] Last Admin: 06/29/18 04:42 Dose: 5,000 units Sodium Chloride (Ns Inj) 1,000 mls @ 0 mls/hr IV.SIG .Q0M [facility] Last Infusion: 06/28/18 12:27 Dose: Infused Sodium Chloride (Ns Inj) 1,000 mls @ 0 mls/hr IV.SIG .Q0M [facility] Last Infusion: 06/28/18 12:28 Dose: Infused Sodium Chloride (Ns Inj) 1,000 mls @ 100 mls/hr IV.CONT .Q10H [facility] Last Admin: 06/29/18 11:58 Dose: 100 mls/hr Azithromycin 250 mg/ Sodium (Chloride) 250 mls @ 250 mls/hr IV.SIG Q24H [facility] Last Infusion: 06/29/18 02:56 Dose: Infused Ceftriaxone Sodium 1,000 mg/ (Sodium Chloride) 100 mls @ 200 mls/hr IV.SIG Q24H [facility] Last Infusion: 06/29/18 04:15 Dose: Infused Diltiazem HCl 125 mg/ Sodium (Chloride) 125 mls @ 5 mls/hr IV.CONT TITRATE PRN ; Protocol PRN Reason: Per Protocol Last Admin: 06/29/18 07:14 Dose: 5 mg/hr, 5 mls/hr Insulin Aspart (Novolog Insulin Correctional Sugar Inj) 0 unit SQ ACHS [facility]; Protocol Last Admin: 06/29/18 11:28 Dose: 1 unit Metoprolol Tartrate (Lopressor) 100 mg PO DAILY [facility] Last Admin: 06/29/18 08:13 Dose: 100 mg Ondansetron HCl (Zofran Inj) 4 mg IV.PUSH Q6H PRN PRN Reason: NAUSEA OR VOMITING Pantoprazole Sodium (Protonix) 20 mg PO DAILY [facility] Last Admin: 06/29/18 08:12 Dose: Not Given Temazepam (Restoril) 15 mg PO HS PRN PRN Reason: INSOMNIA Exam Vital signs: Vital Signs 06/28/18 16:00 06/28/18 17:00 06/28/18 18:00 Temperature Pulse Rate 104 H 112 H 99 H Respiratory Rate Blood Pressure Pulse Oximetry 06/28/18 18:19 06/28/18 19:00 06/28/18 20:00 Temperature 98.9 F 98.8 F Pulse Rate 106 H 110 H Respiratory Rate 20 Blood Pressure 145/49 H Pulse Oximetry 96 96 06/28/18 21:00 06/28/18 22:00 06/28/18 23:00 Temperature 101.0 F H Pulse Rate 114 H 128 H 122 H Respiratory Rate 20 Blood Pressure 134/53 L Pulse Oximetry 98 06/29/18 00:00 06/29/18 01:00 06/29/18 02:00 Temperature Pulse Rate 118 H 106 H 98 H Respiratory Rate Blood Pressure Pulse Oximetry 06/29/18 03:00 06/29/18 04:00 06/29/18 05:00 Temperature 98.7 F Pulse Rate 99 H 113 H 120 H Respiratory Rate 20 Blood Pressure 98/63 L Pulse Oximetry 96 06/29/18 06:00 06/29/18 07:00 06/29/18 08:00 Temperature 98.1 F Pulse Rate 120 H 91 H 91 H Respiratory Rate 16 Blood Pressure 143/70 H Pulse Oximetry 96 06/29/18 09:00 06/29/18 10:00 06/29/18 11:00 Temperature 98.6 F Pulse Rate 99 H 98 H 98 H Respiratory Rate 16 Blood Pressure 112/62 Pulse Oximetry 96 06/29/18 12:00 06/29/18 13:00 06/29/18 14:00 Temperature Pulse Rate 99 H 100 H 110 H Respiratory Rate Blood Pressure Pulse Oximetry 06/29/18 15:00 Temperature 100.6 F H Pulse Rate 109 H Respiratory Rate 16 Blood Pressure 105/53 L Pulse Oximetry 94 L Intake & Output 06/28/18 06/29/18 06/29/18 18:59 06:59 18:59 Intake Total 3750 / 3750 2070 / 2070 1000 / 1000 Output Total 800 / 800 500 / 500 Balance 2950 / 2950 1570 / 1570 1000 / 1000 Intake: IV 3350 / 3350 1350 / 1350 1000 / 1000 NS Inj 1,000 ML @ 100 mls/hr IV 1000 / 1000 1000 / 1000 1000 / 1000 .CONT .Q10H [facility] Rx#:[id number] Azithromycin Inj 250 MG In NS 250 / 250 Inj 250 ML @ 250 mls/hr IV.SIG Q24H [facility] Rx#:[id number] NS Inj 1,000 ML @ Wide Open IV. 1999 / 1999 SIG .Q0M [facility] Rx#:[id number] Rocephin Inj 1,000 MG In NS Inj 100 / 100 100 ML @ 200 mls/hr IV.SIG Q24H [facility] Rx#:[id number] Oral 400 / 400 720 / 720 Output: Urine 800 / 800 500 / 500 Other: # Voids 2 Date of Last Bowel Movement 06/28/18 Narrative: GENERAL: SKIN: Warm and dry. HEAD: Normocephalic. EYES: No scleral icterus. No injection or drainage. NECK: Supple, trachea midline. No JVD or lymphadenopathy. CARDIOVASCULAR: Regular rate with frequent ectopy and rhythm without murmurs, gallops, or rubs. RESPIRATORY: Mild expiratory wheeze bilateral. No accessory muscle use. GASTROINTESTINAL: Abdomen soft, non-tender, nondistended. MUSCULOSKELETAL: No cyanosis, or edema. Results 06/29/18 05:13 06/29/18 05:13 CBC 06/29/18 Range/Units 05:13 WBC 3.0 L (4.0-11.0) th/mm3 RBC 2.96 L (4.50-5.90) mil/mm3 Hgb 8.8 L (13.0-17.0) gm/dL Hct 25.6 L (39.0-51.0) % Plt Count 74 L (150-450) th/mm3 Neut # (Auto) 1.9 (1.8-7.7) th/mm3 Lymph # (Auto) 0.8 L (1.0-4.8) th/mm3 Ellis # (Auto) 0.1 (0.0-0.9) th/mm3 Eos # (Auto) 0.0 (0.0-0.4) th/mm3 Baso # (Auto) 0.0 (0.0-0.2) th/mm3 Comprehensive Metabolic Panel 06/29/18 Range/Units 05:13 Sodium 138 (136-145) meq/L Potassium 3.2 L (3.5-5.1) meq/L Chloride 101 (98-107) meq/L Carbon Dioxide 27.9 (21.0-32.0) meq/L BUN 11 (7-18) mg/dL Creatinine 1.05 (0.60-1.30) mg/dL Calcium 7.0 L* (8.5-10.1) mg/dL Total Protein 6.0 L D (6.4-8.2) g/dL Intake and Output 06/29/18 06/29/18 06/29/18 06:59 14:59 22:59 Intake Total 2070 / 2070 1000 / 1000 Output Total 500 / 500 Balance 1570 / 1570 1000 / 1000 Intake: IV 1350 / 1350 1000 / 1000 NS Inj 1,000 ML @ 100 mls/hr IV 1000 / 1000 1000 / 1000 .CONT .Q10H [facility] Rx#:[id number] Azithromycin Inj 250 MG In NS 250 / 250 Inj 250 ML @ 250 mls/hr IV.SIG Q24H [facility] Rx#:[id number] Rocephin Inj 1,000 MG In NS Inj 100 / 100 100 ML @ 200 mls/hr IV.SIG Q24H [facility] Rx#:[id number] Oral 720 / 720 Output: Urine 500 / 500 Other: Date of Last Bowel Movement 06/28/18 06/28/18 Assessment and Plan - Assessment (1) Atypical chest pain Code(s): R07.89 - Other chest pain Status: Acute - Plan 62 yo obese WM with CAD, cardiac st[place] [address] Salomon and since lost to follow up, HTN, HLD, DMII,COPD, tobacco and marijuana smoker with lymphoma admitted for chest pain and diaphoresis. Patient states in under the care of oncologist for late stage lymphoma and has undergone several rounds of chemo and most recently radiation to neck last month. He reports frequent fevers and night sweats x several weeks; 2 nights ago he awoke with diaphoresis , one episode of emesis and left sided chest pressure that was not reminiscent of prior OR. He was transported to the ED where EKG showed sinus tachycardia and frequent PACs with HR 100-110bpm no concerning ST segment or T wave changes. Troponin level x 1 0.03. He is now on Diltiazem gtt and metoprolol 100mg daily with continued tachycardia (HR 97-110bpm). He states chest pressure resolved last night; chronic SOB ,now with continued diaphoresis and fever. No palpitations atypical chest pain- currently asymptomatic. EKG nonischemic. initial trop normal, will order repeat troponin to monitor trend cont plavix, statin, bb tachycardia- sinus tachycardia with frequent PACs. HR 90-110bpm. metoprolol tartrate 100mg being given once daily, consider change to BID if SBP will allow. diltiazem gtt started this morning. check 12 lead EKG sepsis- fever/tachycardia- being given antibiotics. leukopenia- currently under the care of oncologist in outpatient for late stage lymphoma anemia- Hgb dipped to 8.8 today hypokalemia- cont repletion. <Minor,Ramesh - Last Filed: 06/29/18 17:22> History of Present Illness Primary Care Provider: UNKNOWN [facility] - Medical History Medical History: Medical History (Last Updated 06/28/18 @ 02:59 by Seth Martinez) COPD (chronic obstructive pulmonary disease) Diabetes GERD (gastroesophageal reflux disease) HTN (hypertension) Heart attack Hx of abdominal aortic aneurysm TIA (transient ischemic attack) - Surgical History Surgical History: Surgical History (Last Updated 06/28/18 @ 02:59 by Seth Martinez) Hx of heart surgery - Family History Family History: Family History (Last Updated 06/28/18 @ 08:29 by Ermias Moncada MD) Father Heart disease Medications and Allergies Active Medications: Active Medications Acetaminophen (Tylenol) 650 mg PO Q4H PRN PRN Reason: Temp > 100.4 Last Admin: 06/29/18 14:54 Dose: 650 mg Albuterol (Albuterol Neb (Prn)) 1.25 mg NEB Q2HR NEB PRN PRN Reason: sob/wheezing Amlodipine Besylate (Norvasc) 10 mg PO DAILY [facility] Last Admin: 06/29/18 08:13 Dose: 10 mg Atorvastatin Calcium (Lipitor) 20 mg PO DAILY [facility] Last Admin: 06/29/18 08:13 Dose: Not Given Clopidogrel Bisulfate (Plavix) 75 mg PO DAILY [facility] Last Admin: 06/29/18 08:11 Dose: 75 mg Dextrose (D50w Vial) 50 ml IV.PUSH UNSCH PRN PRN Reason: PER HYPOGLYCEMIA PROTOCOL Famotidine (Pepcid) 20 mg PO DAILY [facility] Last Admin: 06/29/18 08:12 Dose: Not Given Glipizide (Glucotrol) 10 mg PO DAILY [facility] Glucagon (Glucagon Inj) 1 mg OTHER PRN PRN PRN Reason: for Hypoglycemia Protocol Heparin Sodium (Porcine) (Heparin Inj) 5,000 units SQ Q12H [facility] Last Admin: 06/29/18 17:02 Dose: 5,000 units Sodium Chloride (Ns Inj) 1,000 mls @ 0 mls/hr IV.SIG .Q0M [facility] Last Infusion: 06/28/18 12:27 Dose: Infused Sodium Chloride (Ns Inj) 1,000 mls @ 0 mls/hr IV.SIG .Q0M [facility] Last Infusion: 06/28/18 12:28 Dose: Infused Sodium Chloride (Ns Inj) 1,000 mls @ 100 mls/hr IV.CONT .Q10H [facility] Last Admin: 06/29/18 11:58 Dose: 100 mls/hr Azithromycin 250 mg/ Sodium (Chloride) 250 mls @ 250 mls/hr IV.SIG Q24H [facility] Last Infusion: 06/29/18 02:56 Dose: Infused Ceftriaxone Sodium 1,000 mg/ (Sodium Chloride) 100 mls @ 200 mls/hr IV.SIG Q24H [facility] Last Infusion: 06/29/18 04:15 Dose: Infused Diltiazem HCl 125 mg/ Sodium (Chloride) 125 mls @ 5 mls/hr IV.CONT TITRATE PRN ; Protocol PRN Reason: Per Protocol Last Admin: 06/29/18 07:14 Dose: 5 mg/hr, 5 mls/hr Insulin Aspart (Novolog Insulin Correctional Sugar Inj) 0 unit SQ ACHS [facility]; Protocol Last Admin: 06/29/18 17:01 Dose: 3 unit Metoprolol Tartrate (Lopressor) 100 mg PO DAILY [facility] Last Admin: 06/29/18 08:13 Dose: 100 mg Ondansetron HCl (Zofran Inj) 4 mg IV.PUSH Q6H PRN PRN Reason: NAUSEA OR VOMITING Pantoprazole Sodium (Protonix) 20 mg PO DAILY [facility] Last Admin: 06/29/18 08:12 Dose: Not Given Temazepam (Restoril) 15 mg PO HS PRN PRN Reason: INSOMNIA Exam Vital signs: Vital Signs 06/28/18 18:00 06/28/18 18:19 06/28/18 19:00 Temperature 98.9 F 98.8 F Pulse Rate 99 H 106 H Respiratory Rate 20 Blood Pressure 145/49 H Pulse Oximetry 96 06/28/18 20:00 06/28/18 21:00 06/28/18 22:00 Temperature Pulse Rate 110 H 114 H 128 H Respiratory Rate Blood Pressure Pulse Oximetry 96 06/28/18 23:00 06/29/18 00:00 06/29/18 01:00 Temperature 101.0 F H Pulse Rate 122 H 118 H 106 H Respiratory Rate 20 Blood Pressure 134/53 L Pulse Oximetry 98 06/29/18 02:00 06/29/18 03:00 06/29/18 04:00 Temperature 98.7 F Pulse Rate 98 H 99 H 113 H Respiratory Rate 20 Blood Pressure 98/63 L Pulse Oximetry 96 06/29/18 05:00 06/29/18 06:00 06/29/18 07:00 Temperature 98.1 F Pulse Rate 120 H 120 H 91 H Respiratory Rate 16 Blood Pressure 143/70 H Pulse Oximetry 96 06/29/18 08:00 06/29/18 09:00 06/29/18 10:00 Temperature Pulse Rate 91 H 99 H 98 H Respiratory Rate Blood Pressure Pulse Oximetry 06/29/18 11:00 06/29/18 12:00 06/29/18 13:00 Temperature 98.6 F Pulse Rate 98 H 99 H 100 H Respiratory Rate 16 Blood Pressure 112/62 Pulse Oximetry 96 06/29/18 14:00 06/29/18 15:00 06/29/18 16:00 Temperature 100.6 F H Pulse Rate 110 H 109 H 103 H Respiratory Rate 16 Blood Pressure 105/53 L Pulse Oximetry 94 L Intake & Output 06/28/18 06/29/18 06/29/18 18:59 06:59 18:59 Intake Total 3750 / 3750 2070 / 2070 1000 / 1000 Output Total 800 / 800 500 / 500 Balance 2950 / 2950 1570 / 1570 1000 / 1000 Intake: IV 3350 / 3350 1350 / 1350 1000 / 1000 NS Inj 1,000 ML @ 100 mls/hr IV 1000 / 1000 1000 / 1000 1000 / 1000 .CONT .Q10H [facility] Rx#:[id number] Azithromycin Inj 250 MG In NS 250 / 250 Inj 250 ML @ 250 mls/hr IV.SIG Q24H [facility] Rx#:[id number] NS Inj 1,000 ML @ Wide Open IV. 1999 / 1999 SIG .Q0M [facility] Rx#:[id number] Rocephin Inj 1,000 MG In NS Inj 100 / 100 100 ML @ 200 mls/hr IV.SIG Q24H [facility] Rx#:[id number] Oral 400 / 400 720 / 720 Output: Urine 800 / 800 500 / 500 Other: # Voids 2 Date of Last Bowel Movement 06/28/18 Results 06/29/18 05:13 06/29/18 05:13 Cardiac Enzymes 06/29/18 Range/Units 05:13 Troponin I 0.03 (0.02-0.05) ng/mL CBC 06/29/18 Range/Units 05:13 WBC 3.0 L (4.0-11.0) th/mm3 RBC 2.96 L (4.50-5.90) mil/mm3 Hgb 8.8 L (13.0-17.0) gm/dL Hct 25.6 L (39.0-51.0) % Plt Count 74 L (150-450) th/mm3 Neut # (Auto) 1.9 (1.8-7.7) th/mm3 Lymph # (Auto) 0.8 L (1.0-4.8) th/mm3 Ellis # (Auto) 0.1 (0.0-0.9) th/mm3 Eos # (Auto) 0.0 (0.0-0.4) th/mm3 Baso # (Auto) 0.0 (0.0-0.2) th/mm3 Comprehensive Metabolic Panel 06/29/18 Range/Units 05:13 Sodium 138 (136-145) meq/L Potassium 3.2 L (3.5-5.1) meq/L Chloride 101 (98-107) meq/L Carbon Dioxide 27.9 (21.0-32.0) meq/L BUN 11 (7-18) mg/dL Creatinine 1.05 (0.60-1.30) mg/dL Calcium 7.0 L* (8.5-10.1) mg/dL Total Protein 6.0 L D (6.4-8.2) g/dL Intake and Output 06/29/18 06/29/18 06/29/18 06:59 14:59 22:59 Intake Total 2070 / 2070 1000 / 1000 Output Total 500 / 500 Balance 1570 / 1570 1000 / 1000 Intake: IV 1350 / 1350 1000 / 1000 NS Inj 1,000 ML @ 100 mls/hr IV 1000 / 1000 1000 / 1000 .CONT .Q10H [facility] Rx#:[id number] Azithromycin Inj 250 MG In NS 250 / 250 Inj 250 ML @ 250 mls/hr IV.SIG Q24H [facility] Rx#:[id number] Rocephin Inj 1,000 MG In NS Inj 100 / 100 100 ML @ 200 mls/hr IV.SIG Q24H [facility] Rx#:[id number] Oral 720 / 720 Output: Urine 500 / 500 Other: Date of Last Bowel Movement 06/28/18 06/28/18 Assessment and Plan - Assessment (1) Atypical chest pain Code(s): R07.89 - Other chest pain Status: Acute - Attending Attestation agree with above
[2018-06-29 17:02] LABS: Amphetamine Screen,Urine Neg (Neg); Barbiturate Screen,Urine Neg (Neg); Cannabinoid Screen,Urine Neg (Neg); Cocaine Screen,Urine Neg (Neg)
[2018-06-29 17:06] LABS: Opiate Screen,Urine Neg (Neg)
[2018-06-29] MEDS ORDERED: ALPRAZolam 0.25 MG Tablet PO ONE (20:24)
[2018-06-29] MEDS ORDERED: MethylPREDNISolone Sod Succinate Inj 125 MG/2 ML Vial IV.PUSH ONE (20:25)
[2018-06-29] MEDS: guaiFENesin 600 MG ER Tablet PO SCH (20:51)
[2018-06-30] MEDS: Azithromycin Inj 250 MG in Sodium Chlor 0.9% Inj 250 ML IV.SIG SCH (03:30)
[2018-06-30 05:03] LABS: ABG Base Excess 1.7 mmol/L (-2-2); ABG PCO2 34 mmHg (38-42); ABG PO2 101 mmHg (61-120)
[2018-06-30 07:11] LABS: Albumin 2.2 g/dL (3.4-5.0); Calcium 6.9 mg/dL (8.5-10.1); Magnesium 1.5 mg/dL (1.5-2.5); Phosphorus 3.1 mg/dL (2.5-4.9); Potassium 3.3 meq/L (3.5-5.1)
[2018-06-30 07:14] LABS: Baso % (Auto) 0.4 % (0.0-2.0); Eos % (Auto) 0.3 % (0.0-4.0); Hematocrit 24.6 % (39.0-51.0); Hemoglobin 8.2 gm/dL (13.0-17.0); Lymph # (Auto) 0.4 th/mm3 (1.0-4.8); Lymph % (Auto) 18.3 % (9.0-44.0); Mean Corpuscular HGB Conc 33.4 % (32.0-36.0); Mean Corpuscular Hemoglobin 29.1 pg (27.0-34.0); Mean Corpuscular Volume 87.3 fL (80.0-100.0); Mean Platelet Volume 9.9 fL (7.0-11.0); Mono # (Auto) 0.1 th/mm3 (0.0-0.9); Mono % (Auto) 4.5 % (0.0-8.0); Neut # (Auto) 1.8 th/mm3 (1.8-7.7); Neut % (Auto) 76.5 % (16.0-70.0); Platelet Count 71 th/mm3 (150-450); Red Blood Count 2.82 mil/mm3 (4.50-5.90); Red Cell Distribution Width 16.4 % (11.6-17.2); White Blood Count 2.4 th/mm3 (4.0-11.0)
[2018-06-30] MEDS: Insulin NovoLOG Aspart Correctional Sugar Inj SQ SCH ×3 (08:05→18:10)
[2018-06-30 08:16] LABS: Lymphocytes 9 % (9-44); Monocytes 5 % (0-8); Platelet Morphology Normal (Normal)
[2018-06-30] MEDS: Heparin - SQ 10,000 UNITS/ML Vial SQ SCH (08:16)
[2018-06-30] MEDS: amLODIPine 10 MG Tablet PO SCH (08:20)
[2018-06-30] MEDS: Famotidine 20 MG Tablet PO SCH (08:20)
[2018-06-30] MEDS: guaiFENesin 600 MG ER Tablet PO SCH ×2 (08:20→21:44)
[2018-06-30] MEDS: Metoprolol Tartrate 100 MG Tablet PO SCH (08:20)
[2018-06-30] MEDS: Pantoprazole Sodium 20 MG DR Tablet PO SCH (08:20)
[2018-06-30] MEDS: dilTIAZem Inj 125 MG in Sodium Chlor 0.9% Inj 100 ML IV.CONT PRN (08:25)
--- NOTE | 2018-06-30 09:39 | P.PNCA ---
Subjective Interval history: no complaints HR improved no CP Physical Exam Vital signs: Vital Signs 06/29/18 10:00 06/29/18 11:00 06/29/18 12:00 Temperature 98.6 F Pulse Rate 98 H 98 H 99 H Respiratory Rate 16 Blood Pressure 112/62 Pulse Oximetry 96 06/29/18 13:00 06/29/18 14:00 06/29/18 15:00 Temperature 100.6 F H Pulse Rate 100 H 110 H 109 H Respiratory Rate 16 Blood Pressure 105/53 L Pulse Oximetry 94 L 06/29/18 16:00 06/29/18 17:00 06/29/18 18:00 Temperature Pulse Rate 103 H 93 H 86 Respiratory Rate Blood Pressure Pulse Oximetry 06/29/18 19:00 06/29/18 20:00 06/29/18 20:06 Temperature 99.4 F Pulse Rate 126 H 91 H Respiratory Rate 22 Blood Pressure 127/52 L Pulse Oximetry 98 99 06/29/18 20:07 06/29/18 21:00 06/29/18 22:00 Temperature Pulse Rate 116 H 130 H 124 H Respiratory Rate 22 Blood Pressure Pulse Oximetry 06/29/18 23:00 06/30/18 00:00 06/30/18 01:00 Temperature Pulse Rate 128 H 114 H 102 H Respiratory Rate 16 Blood Pressure Pulse Oximetry 96 06/30/18 02:00 06/30/18 03:00 06/30/18 04:00 Temperature Pulse Rate 102 H 92 H 87 Respiratory Rate 16 Blood Pressure Pulse Oximetry 96 06/30/18 05:00 06/30/18 06:00 06/30/18 07:15 Temperature Pulse Rate 84 92 H Respiratory Rate Blood Pressure Pulse Oximetry 98 Intake & Output 06/29/18 06/30/18 06/30/18 18:59 06:59 18:59 Intake Total 1600 / 1600 1695 / 1695 230 / 230 Output Total 900 / 900 1 / 1 Balance 700 / 700 1694 / 1694 230 / 230 Weight 108.9 kg Intake: IV 1000 / 1000 920 / 920 230 / 230 NS Inj 1,000 ML @ 100 mls/hr IV 1000 / 1000 550 / 550 .CONT .Q10H [facility] Rx#:[id number] Cardizem Inj 125 MG In NS Inj 120 / 120 130 / 130 100 ML @ 5 MG/HR 5 mls/hr IV. CONT TITRATE PRN Rx#:[id number] Azithromycin Inj 250 MG In NS 250 / 250 Inj 250 ML @ 250 mls/hr IV.SIG Q24H [facility] Rx#:[id number] Rocephin Inj 1,000 MG In NS Inj 100 / 100 100 ML @ 200 mls/hr IV.SIG Q24H [facility] Rx#:[id number] Oral 600 / 600 775 / 775 Output: Urine 900 / 900 Stool Other: Date of Last Bowel Movement 06/28/18 06/28/18 - Constitutional no acute distress - Routine HEENT Exam Eye: Present: EOMI, PERRL ENT: Present: mucous membranes moist - Routine Neck Exam Absent: JVD - Routine Respiratory Exam Present: CTA bilaterally - Routine Cardiovascular Exam Present: RRR. Absent: murmur - Routine Abdominal Exam Present: soft, normoactive bowel sounds - Routine Extremities Exam Absent: edema Assessment and Plan - Assessment (1) Atypical chest pain Code(s): R07.89 - Other chest pain Status: Acute - Plan atypical chest pain- currently asymptomatic. EKG nonischemic. initial trop normal. Had caffeine this am. lexiscan tomorrow. NPO p MN. tachycardia- sinus tachycardia with frequent PACs. metoprolol titrate BID. likely secondary to infection. will sign off call if lexiscan abnormal
[2018-06-30] MEDS: Sod Chloride 0.9% Inj 1,000 ML IV.CONT SCH (11:33)
--- NOTE | 2018-06-30 15:39 | ECG ---
Date Performed: 06/29/2018 Time Performed: 16:54:10 PTAGE: 62 years EKG: Sinus rhythm with PAC(s). Possible left anterior fascicular block Low QRS voltages in precordial leads Since prev ious tracing, no significant change noted Borderline ECG PREVIOUS TRACING : 06/28/2018 13.22.40 DOCTOR: Fransico Rivas Interpretating Date/Time 06/30/2018 15:38:10
--- NOTE | 2018-06-30 17:08 | P.PNIM ---
Subjective Interval history: Patient seen earlier this morning. He reports he is feeling much better. Breathing better. Denies chest pain. Physical Exam Vital signs: Vital Signs 06/29/18 18:00 06/29/18 19:00 06/29/18 20:00 Temperature 99.4 F Pulse Rate 86 126 H 91 H Respiratory Rate 22 Blood Pressure 127/52 L Pulse Oximetry 98 06/29/18 20:06 06/29/18 20:07 06/29/18 21:00 Temperature Pulse Rate 116 H 130 H Respiratory Rate 22 Blood Pressure Pulse Oximetry 99 06/29/18 22:00 06/29/18 23:00 06/30/18 00:00 Temperature Pulse Rate 124 H 128 H 114 H Respiratory Rate 16 Blood Pressure Pulse Oximetry 96 06/30/18 01:00 06/30/18 02:00 06/30/18 03:00 Temperature Pulse Rate 102 H 102 H 92 H Respiratory Rate 16 Blood Pressure Pulse Oximetry 96 06/30/18 04:00 06/30/18 05:00 06/30/18 06:00 Temperature Pulse Rate 87 84 92 H Respiratory Rate Blood Pressure Pulse Oximetry 06/30/18 07:00 06/30/18 07:15 06/30/18 11:00 Temperature 97.3 F L Pulse Rate 88 82 Respiratory Rate 18 18 Blood Pressure 118/76 125/73 Pulse Oximetry 99 98 100 06/30/18 15:00 06/30/18 16:59 Temperature Pulse Rate 84 Respiratory Rate 18 Blood Pressure 113/81 Pulse Oximetry 100 100 Intake & Output 06/29/18 06/30/18 06/30/18 18:59 06:59 18:59 Intake Total 1600 / 1600 1695 / 1695 980 / 980 Output Total 900 / 900 1 / 1 Balance 700 / 700 1694 / 1694 980 / 980 Weight 108.9 kg Intake: IV 1000 / 1000 920 / 920 980 / 980 NS Inj 1,000 ML @ 75 mls/hr IV. 1000 / 1000 550 / 550 750 / 750 CONT .[id number] [facility] Rx#:[id number] Cardizem Inj 125 MG In NS Inj 120 / 120 130 / 130 100 ML @ 5 MG/HR 5 mls/hr IV. CONT TITRATE PRN Rx#:[id number] Azithromycin Inj 250 MG In NS 250 / 250 Inj 250 ML @ 250 mls/hr IV.SIG Q24H [facility] Rx#:[id number] Rocephin Inj 1,000 MG In NS Inj 100 / 100 100 ML @ 200 mls/hr IV.SIG Q24H [facility] Rx#:[id number] Oral 600 / 600 775 / 775 Output: Urine 900 / 900 Stool Other: Date of Last Bowel Movement 06/28/18 06/28/18 06/28/18 Narrative: GENERAL: Patient sitting up in the chair. Appears comfortable. CARDIOVASCULAR: Regular rate and rhythm without murmurs, gallops, or rubs. RESPIRATORY: Breath sounds equal bilaterally. No accessory muscle use. GASTROINTESTINAL: Abdomen soft, non-tender, nondistended. MUSCULOSKELETAL: No cyanosis, or edema. Results - Labs CBC & Chem 7: 06/30/18 06:02 06/30/18 06:02 Laboratory Results - last 24 hr 06/29/18 06/29/18 06/29/18 05:13 15:45 17:00 WBC RBC Hgb Hct MCV MCH MCHC RDW Plt Count MPV Prelim Diff (Auto) Neut % (Auto) Lymph % (Auto) [place] % (Auto) Eos % (Auto) Baso % (Auto) Neut # (Auto) Lymph # (Auto) [place] # (Auto) Eos # (Auto) Baso # (Auto) WBC Differential Seg Neuts % (Manual) Band Neuts % (Manual) Lymphocytes % (Manual) Monocytes % (Manual) Basophils % (Manual) Abs Neuts (Manual) Differential Comment Platelet Estimate Platelet Morphology Puncture Site Patient Temperature O2 Saturation ABG pH ABG pCO2 ABG pO2 ABG HCO3 ABG O2 Content ABG Base Excess ABG Methemoglobin Rod Test Hemoglobin Carboxyhemoglobin O2 Delivery Device Liter Flow Inspired O2 Critical Value Sodium Potassium Chloride Carbon Dioxide Anion Gap BUN Creatinine Estimated GFR POC Glucose 223 H Random Glucose Calcium Phosphorus Magnesium Troponin I 0.03 Albumin Urine Opiates Screen Neg Ur Barbiturates Screen Neg Ur Amphetamines Screen Neg U Benzodiazepines Scrn Neg Urine Cocaine Screen Neg U Cannabinoids Screen Neg 06/30/18 06/30/18 06/30/18 01:15 04:55 06:02 WBC 2.4 L RBC 2.82 L Hgb 8.2 L Hct 24.6 L MCV 87.3 MCH 29.1 MCHC 33.4 RDW 16.4 Plt Count 71 L MPV 9.9 Prelim Diff (Auto) Slide review pending Neut % (Auto) 76.5 H Lymph % (Auto) 18.3 [place] % (Auto) 4.5 Eos % (Auto) 0.3 Baso % (Auto) 0.4 Neut # (Auto) 1.8 Lymph # (Auto) 0.4 L [place] # (Auto) 0.1 Eos # (Auto) 0.0 Baso # (Auto) 0.0 WBC Differential Manual diff final Seg Neuts % (Manual) 77 H Band Neuts % (Manual) 8 H Lymphocytes % (Manual) 9 Monocytes % (Manual) 5 Basophils % (Manual) 1 Abs Neuts (Manual) 2.0 Differential Comment . Platelet Estimate Low L Platelet Morphology Normal Puncture Site Right radial Patient Temperature 98.6 O2 Saturation 96 ABG pH 7.48 H ABG pCO2 34 L ABG pO2 101 ABG HCO3 25 ABG O2 Content 13.0 ABG Base Excess 1.7 ABG Methemoglobin 1.2 Rod Test Present Hemoglobin 9.6 L Carboxyhemoglobin 1.6 O2 Delivery Device Nasal cannula Liter Flow 2.00 Inspired O2 28 Critical Value No Sodium Potassium Chloride Carbon Dioxide Anion Gap BUN Creatinine Estimated GFR POC Glucose 198 H Random Glucose Calcium Phosphorus Magnesium Troponin I Albumin Urine Opiates Screen Ur Barbiturates Screen Ur Amphetamines Screen U Benzodiazepines Scrn Urine Cocaine Screen U Cannabinoids Screen 06/30/18 06/30/18 06/30/18 06:02 07:55 11:44 WBC RBC Hgb Hct MCV MCH MCHC RDW Plt Count MPV Prelim Diff (Auto) Neut % (Auto) Lymph % (Auto) [place] % (Auto) Eos % (Auto) Baso % (Auto) Neut # (Auto) Lymph # (Auto) [place] # (Auto) Eos # (Auto) Baso # (Auto) WBC Differential Seg Neuts % (Manual) Band Neuts % (Manual) Lymphocytes % (Manual) Monocytes % (Manual) Basophils % (Manual) Abs Neuts (Manual) Differential Comment Platelet Estimate Platelet Morphology Puncture Site Patient Temperature O2 Saturation ABG pH ABG pCO2 ABG pO2 ABG HCO3 ABG O2 Content ABG Base Excess ABG Methemoglobin Rod Test Hemoglobin Carboxyhemoglobin O2 Delivery Device Liter Flow Inspired O2 Critical Value Sodium 137 Potassium 3.3 L Chloride 98 Carbon Dioxide 26.0 Anion Gap 13 BUN 14 Creatinine 0.87 Estimated GFR 89 POC Glucose 248 H 289 H Random Glucose 228 H D Calcium 6.9 L* Phosphorus 3.1 Magnesium 1.5 Troponin I Albumin 2.2 L Urine Opiates Screen Ur Barbiturates Screen Ur Amphetamines Screen U Benzodiazepines Scrn Urine Cocaine Screen U Cannabinoids Screen Microbiology 06/28/18 03:20 Sputum - Expectorated Sputum Gram Stain - Final 06/28/18 03:20 Sputum - Expectorated Sputum Sputum Culture - Final Heavy growth normal respiratory mani 06/28/18 03:05 Blood - Peripheral Aerobic Blood Culture - Preliminary No growth in 2 days 06/28/18 03:05 Blood - Peripheral Anaerobic Blood Culture - Preliminary No growth in 2 days 06/28/18 03:00 Blood - Peripheral Aerobic Blood Culture - Preliminary No growth in 2 days 06/28/18 03:00 Blood - Peripheral Anaerobic Blood Culture - Preliminary No growth in 2 days Assessment and Plan - Plan 62-year-old male with: sepsis ( tachycardia/ fever)- suspect pneumonia as the source/ with history of COPD continue with IV antibiotics- will follow the cultures and adjust the antibiotic regimen accordingly- neb treatment. keep on oxygen to keep O2 sat > 90%. counselled on smoking cessation. Patient refuses oncology evaluation for leukopenia. Will continue antibiotic for treatment of pneumonia. SVT on admission. chest pain-cardiac enzymes negative. Continue plavix , metoprolol and statin. Patient now chest pain-free. Cardiology following. Lexiscan tomorrow per cardiology. Metoprolol being titrated. hypertension; resume home meds and monitor. mantle cell lymphoma- f/u as outpatient with diabetes mellitus; hold Glipizide- start on accu-check with SSI. thrombocytopenia- chronic- will monitor. DVT prophylaxis with subq Heparin. Discharge Planning: Plan to DC tomorrow on oral antibiotics if Lexiscan is negative.
[2018-06-30] MEDS ORDERED: Metoprolol Tartrate 100 MG Tablet PO SCH (21:00)
[2018-07-01] MEDS: Heparin - SQ 10,000 UNITS/ML Vial SQ SCH ×2 (01:39→06:31)
[2018-07-01] MEDS: Insulin NovoLOG Aspart Correctional Sugar Inj SQ SCH (01:41)
[2018-07-01] MEDS: Azithromycin Inj 250 MG in Sodium Chlor 0.9% Inj 250 ML IV.SIG SCH (02:19)
[2018-07-01] MEDS: guaiFENesin 600 MG ER Tablet PO SCH (09:00)
[2018-07-01] MEDS: Famotidine 20 MG Tablet PO SCH (09:00)
[2018-07-01] MEDS: Pantoprazole Sodium 20 MG DR Tablet PO SCH (09:01)
[2018-07-01] MEDS ORDERED: Regadenoson Inj 0.4 MG/5 ML Syringe IV.PUSH ONE (14:22)
--- NOTE | 2018-07-01 15:30 | NM ---
EXAM DATE: 07/01/2018 3:08 PM EDT AGE/SEX: 62 years / Male INDICATIONS:Angina. Myocardial infarction Chest pain. CLINICAL DATA: This is the patient's initial encounter. Patient reports that signs and symptoms have been present for 1 day and indicates a pain score of 0/10. MEDICAL/SURGICAL HISTORY: Chronic obstructive pulmonary disease. Diabetes mellitus type II. H ypertension. CABG. COMPARISON: [facility] – [place], [facility], 05/11/2015. . DOSE: 10.2 mCi Tc 99m Myoview at rest 31.2 mCi [id number] at stress 0.4 mg Lexiscan STRESS SYMPTOMS: Dyspne and flushed. EJECTION FRACTION: 65 % TECHNIQUE: The patient underwent pharmacologic stress with infusion of prescribed dose. Continuous ECG tracing was monitored during stress. Gated SPECT imaging was performed after stress and conventi onal SPECT imaging was performed at rest. The examination was performed on a SPECT/CT scanner, both attenuation and non-corrected datasets were reviewed. FINDINGS: Distribution: The maximum perfused segment at stress is in the lateral wall. Perfusion Study: The pattern of perfusion at stress is within normal limits. Gated Study: There are intact wall motion and wall thickening without hypokinetic or dyskinetic segm ents. The ejection fraction is calculated at 65%. RISK CATEGORY: Low (<1% Annual Motality Rate) CONCLUSION: 1. No evidence for stress-induced ischemia. 2. Intact wall motion with EF of 65%. Electronically signed by: Lucas Nunez MD 07/01/2018 3:29 PM EDT
--- NOTE | 2018-07-01 15:40 | P.DS ---
Date of admission: 06/28/18 05:08 Primary care physician: UNKNOWN Brief History from admission: HPI from the admitting physician patient is a 62 y/o male with history of CAD- s/p stent, hypertension, dyslipidemia, diabetes , mantle cell lymphoma, who presented to ER with chest pain. he says that he woke up in the middle of the night with chest pain. pain was midsternal with no radiation. he says that he vomited once and had some sweating. the pain went away after an hour and he was pain free at the time of my evaluation. he says that he's having sob and he had a fever of 102 at the time of presentation to ER. Update on the day of discharge: Patient is frustrated and wants to go home. After extensive discussion with him , he understands the need to stay for the nuclear stress test. DS: Diagnosis - Discharge Diagnosis (1) Atypical chest pain Status: Acute (2) Sepsis Status: Acute DS: Medications - Discharge Medications Prescriptions: azithromycin 500 mg PO DAILY #3 tab cefuroxime axetil 500 mg PO Q12H #8 tab DS: Summary Hospital Course: 62-year-old male admitted and treated for the following: sepsis ( tachycardia/ fever)- suspect pneumonia as the source/ with history of COPD Patient treated with IV Rocephin and azithromycin. He is discharged on cefuroxime and azithromycin to complete the course of treatment. The patient was extensively counseled on smoking cessation. He did have leukopenia but he refused oncology evaluation. He states he will follow-up outpatient. SVT on admission. He reported chest pressure at some point. He was followed by cardiology. His cardiac enzymes were negative. He underwent nuclear stress test which was negative. He is to continue on home dose Plavix, metoprolol, and statin. hypertension; continue home meds mantle cell lymphoma- f/u as outpatient with diabetes mellitus; hold Glipizide- accu-check with SSI. Resume glipizide on discharge. thrombocytopenia- chronic - Time Spent with Patient Total time spent providing and/or coordinating discharge services: Less than 30 minutes - Quality: VTE Deep Vein Thrombosis/Pulmonary Embolism Present on Admission: Yes Exam Vital signs: Vital Signs 06/30/18 16:00 06/30/18 16:59 06/30/18 17:00 Temperature Pulse Rate 82 82 Respiratory Rate Blood Pressure Pulse Oximetry 100 08/18/18 18:00 06/30/18 19:00 06/30/18 20:00 Temperature Pulse Rate 90 86 86 Respiratory Rate 16 Blood Pressure 126/77 Pulse Oximetry 98 06/30/18 21:00 06/30/18 22:00 06/30/18 23:00 Temperature 97.4 F L Pulse Rate 88 100 H 86 Respiratory Rate 16 Blood Pressure 91/52 L Pulse Oximetry 100 07/01/18 00:00 07/01/18 01:00 07/01/18 02:00 Temperature Pulse Rate 83 86 88 Respiratory Rate Blood Pressure Pulse Oximetry 07/01/18 03:00 07/01/18 04:00 07/01/18 05:00 Temperature Pulse Rate 74 98 H 84 Respiratory Rate Blood Pressure Pulse Oximetry 100 07/01/18 06:00 07/01/18 07:00 07/01/18 11:00 Temperature 97.4 F L 97.5 F L Pulse Rate 76 90 113 H Respiratory Rate 18 18 Blood Pressure 102/60 123/70 Pulse Oximetry 96 96 Intake & Output 06/30/18 07/01/18 07/01/18 18:59 06:59 18:59 Intake Total 1460 / 1460 710 / 710 Output Total 800 / 800 925 / 925 Balance 660 / 660 -215 / -215 Intake: IV 980 / 980 350 / 350 NS Inj 1,000 ML @ 75 mls/hr IV. 750 / 750 CONT .[id number] [facility] Rx#:[id number] Cardizem Inj 125 MG In NS Inj 130 / 130 100 ML @ 5 MG/HR 5 mls/hr IV. CONT TITRATE PRN Rx#:[id number] Azithromycin Inj 250 MG In NS 250 / 250 Inj 250 ML @ 250 mls/hr IV.SIG Q24H [facility] Rx#:[id number] Rocephin Inj 1,000 MG In NS Inj 100 / 100 100 / 100 100 ML @ 200 mls/hr IV.SIG Q24H [facility] Rx#:[id number] Oral 480 / 480 360 / 360 Output: Urine 800 / 800 925 / 925 Other: Date of Last Bowel Movement 06/28/18 Narrative: GENERAL: This is a well-nourished, well-developed patient, in no apparent distress. CARDIOVASCULAR: Normal rate and regular rhythm without murmurs, gallops, or rubs. RESPIRATORY: Good respiratory efforts. Breath sounds equal and clear to auscultation bilaterally. GASTROINTESTINAL: Abdomen soft, non-tender, non-distended. Normal active bowel sounds MUSCULOSKELETAL: Extremities without cyanosis, or edema. NEURO: Alert & Oriented x4 to person, place, time, situation. Moves all ext x4 PSYCH: Appropriate mood and affect. Results Procedures completed during hospitalization: None Labs on day of discharge: Labs from last 24 hours 07/01/18 07/01/18 07/01/18 12:04 07:00 00:11 POC Glucose 253 H 278 H 316 H 06/30/18 17:19 POC Glucose 249 H Preliminary micro results at discharge 06/28/18 03:05 Aerobic Blood Culture - Preliminary Blood - Peripheral No growth in 3 days Anaerobic Blood Culture - Preliminary No growth in 3 days 06/28/18 03:00 Aerobic Blood Culture - Preliminary Blood - Peripheral No growth in 3 days Anaerobic Blood Culture - Preliminary No growth in 3 days - Impressions ITS Impressions Chest X-Ray 06/28/18 02:57 CONCLUSION: No acute cardiopulmonary process. Myocardial Perfusion Scan Nuc Med 07/01/18 00:00 CONCLUSION: 1. No evidence for stress-induced ischemia. 2. Intact wall motion with EF of 65%. Discharge Plan - Discharge Disposition Patient Disposition: 01 Discharge Home - Discharge Condition Condition: Stable - Discharge Order Discharge Orders: Discharge Order (Routine); Ordered 07/01/18 Ordered By: Adán Remy - Physicians Team Primary Care Provider: UNKNOWN, Attending Provider: Adán Remy Other Providers: [employer] ; Ramesh De Leon MD
== END 2018-07-01 15:58 | disposition home or self-care (01) ==
LOC: NEPC 02:51 → NEDA 05:08 → NEDH 09:48 → HCIS 12:21 → NEDH 12:31
PROVIDERS: ADMIT Family Medicine; ATTEND Family Medicine